=== PATIENT | female | born 1975 | race Caucasian/White ===

== ENCOUNTER → 2017-09-17 15:41 | Outpatient (CLI) | payer BC, SELFPAY ==
[2017-09-17 18:29] LABS: AST(SGOT) 15 U/L (15-37); Alanine Aminotransfer ALT/SGPT 26 U/L (13-56); Albumin, Serum 3.8 g/dL (3.2-5.0); Alkaline Phosphatase 56 U/L (45-117); Anion Gap 8 (5-15); BUN 14 mg/dL (7-18); Calcium,Total 8.9 mg/dL (8.5-10.1); Chloride 107 mmol/L (98-107); Creatinine, Serum 0.78 mg/dL (0.55-1.02); EST Glomerular Filtration Rate 86 mL/min (>60); Est Glom Filt Rate - Afr Amer 104 mL/min (>60); Glucose 86 mg/dL (74-106); Potassium 4.1 mmol/L (3.5-5.1); Protein, Total 7.8 g/dL (6.4-8.2); Sodium Level 141 mmol/L (136-145); Total Bilirubin < 0.10 mg/dL (0.20-1.00)
== END ==
PROVIDERS: Family Provider Family Medicine; PCP Family Medicine; Visit Provider Podiatrist
DX: S92.502A Displaced unspecified fracture of left lesser toe(s), initial encounter for closed fracture (principal); X58.XXXA Exposure to other specified factors, initial encounter; Y93.9 Activity, unspecified; Y92.9 Unspecified place or not applicable; Y99.9 Unspecified external cause status; E55.9 Vitamin D deficiency, unspecified
CPT/HCPCS: 36415; 80053; 82306

== ENCOUNTER → 2018-04-06 13:37 | Outpatient (CLI) | payer BC, SELFPAY ==
--- NOTE | 2018-04-06 13:39 | CT_ITS ---
STUDY: CT CHEST WITHOUT CONTRAST REASON FOR EXAM: Female, 42 years old. Follow-up bilateral lung nodules. RADIATION DOSAGE (If Supplied By Facility): CTDIvol = ( 8.78 ) mGy, DLP = ( 306.73 ) mGycm TECHNIQUE: Transaxial imaging was performed without the administration of intravenous contrast material. Multiplanar coronal and sagittal images were reformatted. Individualized dose optimization techniques were used for this CT. COMPARISON: CT of the chest, April 06, 2017. FINDINGS: There is minimal bilateral apical pleural scarring unchanged from prior study. There is a 3 mm pleural-based nodule in the periphery of the right lower lobe unchanged from prior study. This is best seen on image 178 of series 4. No other mass or infiltrate is seen. There is no demonstrated pleural abnormality. Normal heart and pericardium. Normal mediastinum. Normal hilar regions. Normal unenhanced pulmonary arteries. Normal aorta arch and descending thoracic aorta. Minimal degenerative changes of the thoracic spine which appears stable. There is no change in the appearance of the upper abdomen. CT/Chest without Contrast IMPRESSION: 1. Stable right basilar nodule. There is no evidence of nodules at the left lung base. 2. No other interval change. Electronically Signed: Jesus Mcwilliams DO at 20:35 EST Tel [phone], Service support ,
== END ==
PROVIDERS: Family Provider Family Medicine; PCP Family Medicine; Referring Provider Internal Medicine Pulmonary Disease; Visit Provider Internal Medicine Pulmonary Disease
DX: R91.8 Other nonspecific abnormal finding of lung field (principal)
CPT/HCPCS: 71250

== ENCOUNTER 2018-05-27 10:30 | Outpatient (RCR) | payer BC, SELFPAY ==
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
--- NOTE | 2018-08-10 16:16 | HP.PT.NRP ---
HP - Discharge Summary (1) - Patient Information ALETHA SUAZO was seen in my office for initial evaluation on 05/13/18. The following Plan of Care was established for this patient: Initial Frequency: 2x /Week Initial Duration: 4 Weeks - Anticipated Interventions Patient/Client Instruction: Educate patient on: Condition, Plan of Care, Risk Factors, Benefits of Fitness Program For the Purpose of:: To improve decision making, To facilitate caregiver knowledge, To improve self management, To prevent re-injury, To improve ability to perform tasks related to life management, To improve tolerance to ADL's Therapeutic Exercise to Include: Strength training, Power training, Balance training, Coordination, Body mechanics, Postural training, Flexibilty training, Gait and locomotor training, Passive ROM, Active ROM For the Purpose of:: To decrease pain, To improve nutrient delivery to tissue, To increase oxygenation perfusion, To improve muscle performance and motor function, To improve ability to perform ADL's, To increase tolerance to activity/condition/position, To improve health of tissue, To decrease soft tissue restriction, To increase flexibility/ROM, To improve endurance, To improve balance IF ES: Yes Cryotherapy (ice pack, ice massage): Yes For the Purpose of:: To decrease pain This patient was last seen in our office 05/27/18. Pertinent comments regarding their Physical therapy will appear below: Pt. was seen for her ankle instability. Pt. was found to have a tear. She has not been back to PT and will be Dc from PT at this point in time. At this point I will be discontinuing this patient from physical therapy. I would be happy to see this patient again in the future if found appropriate by the physician. Thank you! BE AgrawalT
== END 2018-05-27 19:00 | disposition home or self-care (01) ==
LOC: PT 10:30
PROVIDERS: Family Provider Family Medicine; PCP Family Medicine; Referring Provider Podiatrist; Visit Provider Podiatrist
DX: M25.371 Other instability, right ankle (principal)
CPT/HCPCS: 97035; 97110; 97161

== ENCOUNTER → 2018-06-13 07:03 | Outpatient (CLI) | payer BC, SELFPAY ==
--- NOTE | 2018-06-13 07:21 | MRI_ITS ---
STUDY: MRI RIGHT ANKLE WITHOUT CONTRAST REASON FOR EXAM: Female, 43 years old. Pain. Evaluate peroneal tendon tear. TECHNIQUE: Standardized fat and water weighted pulse sequences were obtained in all 3 orthogonal planes. COMPARISON: None. FINDINGS: Normal subcutis adipose space. Normal posterior tibialis tendon. Normal flexor digitorum longus tendon. Normal flexor hallucis longus tendon. There is a partial longitudinal split tear of the peroneus brevis tendon within the retromalleolar groove with tenosynovitis, series 10 image 10/19. Normal tibialis anterior tendon. Normal extensor hallucis longus tendon. Normal extensor digitorum longus tendons. Normal Achilles tendon and teno-osseous insertion. Normal plantar fascia. Normal plantar calcaneal tubercles. Normal intrinsic muscles of the rearfoot. Normal distal tibiofibular syndesmotic ligamentous complex. Normal lateral ligamentous complex. Normal subtalar ligaments and sinus tarsi. Normal deltoid ligamentous complexes. Normal plantar calcaneonavicular (spring) ligament. Normal tibiotalar articulation. Normal talar dome. Normal subtalar articulations. Normal talonavicular articulation. Normal calcaneocuboid articulation. Normal navicular-cuneiform articulations. MRI/Lower Ext Joint Only (Routine) IMPRESSION: Tenosynovitis with longitudinal split tear of the peroneal brevis. Electronically Signed: Rush Berger MD at 10:37 EST , Service support ,
== END ==
LOC: MRI 07:04
PROVIDERS: Family Provider Family Medicine; PCP Family Medicine; Referring Provider Podiatrist; Visit Provider Podiatrist
DX: S86.312A Strain of muscle(s) and tendon(s) of peroneal muscle group at lower leg level, left leg, initial encounter (principal); M25.371 Other instability, right ankle; X58.XXXA Exposure to other specified factors, initial encounter; Y93.9 Activity, unspecified; Y92.9 Unspecified place or not applicable; Y99.9 Unspecified external cause status
CPT/HCPCS: 73721

== ENCOUNTER → 2018-07-23 17:15 | Outpatient (CLI) | payer BC, SELFPAY ==
--- NOTE | 2018-07-23 18:03 | MRI_ITS ---
HISTORY: ROTATOR CUFF TEAR, h/o frozen shoulder, c/o R sided neck pain TECHNIQUE: Multiplanar and multisequence MR images of the right shoulder. IV Contrast dosage and agent: None. COMPARISON: None FINDINGS: Normal AC joint. No cuff impingement. Rotator cuff: The rotator cuff is intact. No cuff tendinosis or atrophy. No fluid collections within the subacromial/subdeltoid bursa. No joint effusion. The axillary recess appears small and associated thickening of the inferior glenohumeral ligament is suggested as seen with addhesive capsulitis. Articular cartilage is preserved. Intact glenoid labrum. The long head of the bicipital tendon is in normal position. No fracture, marrow edema, or avascular necrosis. No evidence of instability. MRI/Upper Ext Joint Only(Routine) IMPRESSION: 1. Small axillary recess with thickening of the inferior glenohumeral ligament is suggested as seen with adhesive capsulitis. 2. Shoulder arthrogram could confirm a small capacity joint. 3. Otherwise negative exam. Intact rotator cuff. No impingement or bursitis. at 0833 Reported and signed by: Robinson Fairchild MD Electronically Signed: Robinson Fairchild, at 8:32 EST Tel , Service support ,
== END ==
PROVIDERS: Family Provider Family Medicine; PCP Family Medicine; Referring Provider Orthopaedic Surgery; Visit Provider Orthopaedic Surgery
DX: M75.101 Unspecified rotator cuff tear or rupture of right shoulder, not specified as traumatic (principal)
CPT/HCPCS: 73221

== ENCOUNTER 2018-08-18 16:00 | Outpatient (RCR) | payer BC, SELFPAY ==
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
--- NOTE | 2018-12-17 11:50 | HP.PTDCNRP_ITS ---
HP - Discharge Summary (1) - Patient Information ALETHA SUAZO was seen in my office for initial evaluation on 08/05/18. The following Plan of Care was established for this patient: Initial Frequency: 1-2x /Week Initial Duration: 1 Week - Anticipated Interventions Patient/Client Instruction: Educate patient on: Condition, Plan of Care For the Purpose of:: To improve self management Therapeutic Exercise to Include: Strength training, Endurance training, Scapular Strength/Stabilization For the Purpose of:: To decrease pain, To increase ROM, To improve muscle per formance and motor function Cryotherapy (ice pack, ice massage): Yes For the Purpose of:: To decrease pain This patient was last seen in our office . Pertinent comments regarding their Physical therapy will appear below: Pt was treated for 3 PT visits through the date of 08/18/18. Pt has not returned since that date, and is discontinued at this time. At this point I will be discontinuing this patient from physical therapy. I would be happy to see this patient again in the future if found appropriate by the physician. Thank you! John Chapman, PT, ATC
== END 2018-08-18 19:00 | disposition home or self-care (01) ==
LOC: PT 16:00
PROVIDERS: Family Provider Family Medicine; PCP Family Medicine; Referring Provider Orthopaedic Surgery; Visit Provider Orthopaedic Surgery
DX: M75.01 Adhesive capsulitis of right shoulder (principal); M75.41 Impingement syndrome of right shoulder
CPT/HCPCS: 97110; 97140; 97161

== ENCOUNTER 2019-08-19 13:00 | Outpatient (RCR) | payer BC, SELFPAY ==
--- NOTE | 2019-06-29 11:01 | HP.PTEVAL_ITS ---
Patient's Visit Information ALETHA SUAZO is a 44 year old F referred to Physical Therapy by Alma Carey MD with a diagnosis of Right Peroneal Tendon Repair 05/14. Date of Evaluation: 06/29/19 Physical Therapist: Alma Jason DPT - Visit Plan Frequency: 2x /Week Duration: 4 Weeks Plan: Focus on LE strength, flex, propriocetion and muscular endurance- gait pattern and functional mobility- caution of edema - Subjective Findings: Right Peroneal Tendon Repair May 14, 2019 went home after surgery. Was in a cast for 2 weeks and then into a boot. Got out of the boot and into an ankle brace last . Feels a lot better in the ankle brace. Pain at the worst 4/10 Agg: movement, being down, stairs. Eases: rest, ice, elevation Best: 0/10. Pain is located under the lateral malleolus and runs to the mid calf . Describes the pain as burning and stabbing. No N/T in the right LE. 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 Is active normally- work out and walks a lot. Wants to get back to maybe light jogging. Is wear a compression sleeve and ankle brace when she is awake. Sleep: slightly distrubed but getting better. PMHx: none Meds: delmis D for allergies. Last time back to MD was she was happy with progress- no x-rays since surgery. - Objective Posture: FH, RS- can correct but does not maintain. Gait: antalgic- decreased heel toe pattern with decreased stance on the right LE. Stairs: non recip with no HR. HR/TR: able with increased discomfort. SLS: 2 sec then LOB. Girth: Figure 8:47 cm, Mets: 20 cm, Mall: 24 cm. ROM: DF: 5 degrees. PF: 50 degrees, Inv: 30 degrees, Ever: 10 degrees. Strength: 4+/5 throughout ankle and knee. Flex: Gastroc: severe, Soleus: moderate HS: severe. Palpation: tender along lateral malleolus. Incision: healing well - Goals Goal 1:: Patient will be I with HEP and progression Goal Time Frame: 4-6 Weeks Goal 2:: Patient will ambulate >300 feet with a normalized gait pattern Goal Time Frame: 4-6 Weeks Goal 3:: Patinet will SLS for 30 sec without LOB Goal Time Frame: 4-6 Weeks Goal 4:: Patient will asc/desc 8 recip with 1 HR Goal Time Frame: 4-6 Weeks - Rehabilitation Potential Physical Therapy Diagnosis: Patient presents with hypomobility- she has decreased strength, flex, muscular endurance leading to poor posture and increased pain with ADL's and recreational activities Rehabilitation Potential: Good - Anticipated Interventions Patient/Client Instruction: Educate patient on: Benefits of Fitness Program Therapeutic Exercise to Include: Strength training, Endurance training, Balance training, Body mechanics, Postural training, Flexibilty training, Gait and locomotor training, Neuromotor development, Passive ROM, Active ROM, Dynamic Lumbar Stabilization TENS: Yes Cryotherapy (ice pack, ice massage): Yes Thermo therapy (hot pack): Yes For the Purpose of:: To decrease pain, To decrease swelling/inflammation Thank you for the opportunity to evaluate your patient. For Medicare and Medicare HMO plans, please review the plan of care and approve it. It will need to be FAXED BACK to us at [phone] for Medicare purposes. For Medicare only, by signing this I certify the plan of care. Please let me know if there are questions or concerns regarding this plan of care. Physician Sig nature: Date:
--- NOTE | 2019-07-27 13:21 | HP.PTREVAL_ITS ---
Alma Carey MD, It has been my pleasure to treat ALETHA SUAZO over the last 8 visits for Right Peroneal Tendon Repair 05/14. Please see the progress note below for an update on the physical therapy plan of care! Subjective: Patient reports that she is getting better and better- she is doing the band daily. It tightens up randomonly. She is getting to the point where she can walk without thinking about it. Does still have sharp pains which MD says that is normal. Saw who was happy. She wants to be able to walk longer distances and wants to run run/jog. Objective/Function: Posture: FH, RS- can correct but does not maintain. Gait: improved- still slightly antalgic with decreased toe off pattern Stairs: recip with 1 HR. HR/TR: able with tightness. SLS: 12 sec then LOB. ROM: DF: 10 degrees. PF: 60 degrees, Inv: 30 degrees, Ever: 10 degrees. Strength: 4+/5 throughout ankle and knee Hip: 4/5 Core: fair. Flex: Gastroc: moderate, Soleus: moderate HS: severe. Palpation: tender along lateral malleolus. Incision: healing well Plan Plan: Continue 2x a week for 4 weeks- progress with LE and core strength/stabilization- 60 min sessions Goals Goal 1:: Patient will be I with HEP and progression Goal Time Frame: 4-6 Weeks Goal Progress: Progressing Goal 2:: Patient will ambulate >300 feet with a normalized gait pattern Goal Time Frame: 4-6 Weeks Goal Progress: Progressing Goal 3:: Patinet will SLS for 30 sec without LOB Goal Time Frame: 4-6 Weeks Goal Progress: Progressing Goal 4:: Patient will asc/desc 8 recip with 1 HR Goal Time Frame: 4-6 Weeks Goal Progress: Progressing Anticipated Interventions Patient/Client Instruction: Educate patient on: Benefits of Fitness Program Therapeutic Exercise to Include: Strength training, Endurance training, Balance training, Body mechanics, Postural training, Flexibilty training, Gait and locomotor training, Neuromotor development, Passive ROM, Active ROM, Dynamic Lumbar Stabilization TENS: Yes Cryotherapy (ice pack, ice massage): Yes Thermo therapy (hot pack): Yes For the Purpose of:: To decrease pain, To decrease swelling/inflammation Please do not hesitate to contact me at [phone] by phone or Fax: if you have questions or concerns regarding this new plan of care! Sincerely, BE OnealT
--- NOTE | 2019-08-19 13:18 | HP.PTDCSUM_ITS ---
It has been my pleasure to treat ALETHA SUAZO referred by Alma Carey MD, with the diagnosis of Right Peroneal Tendon Repair 05/14 for a total of 15 visit(s). Discharge Date: Please see the following information for a summary of their discharge status. Subjective: Patient reports that she is doing well- she reports that she still has a little bit of pain- Worst: 3-4/10- aggravated by stairs- had to back off a little bit of weights due to a harder step down. Feels that she is 70% back to normal. Wants to be able to walk longer distances. Back Pain Intensity (Out of 10): 2 % Improvement: 70 Objective/Function: Posture: FH, RS- can correct but does not maintain. Gait: no deviation noted Stairs: recip with 1 HR. HR/TR: able no UE A. SLS: 30 sec no LOB. ROM: DF: 15 degrees. PF: 60 degrees, Inv: 30 degrees, Ever: 10 degrees. Strength: 5/5 throughout ankle and knee Hip: 4+/5 Core: fair. Flex: Gastroc: moderate, Soleus: moderate HS: severe. Palpation: not tender Incision: healing well Goal 1:: Patient will be I with HEP and progression Goal Progress: Goal Met Goal 2:: Patient will ambulate >300 feet with a normalized gait pattern Goal Progress: Goal Met Goal 3:: Ammynet will SLS for 30 sec without LOB Goal Progress: Goal Met Goal 4:: Patient will asc/desc 8 recip with 1 HR Goal Progress: Goal Met Plan: Discharge to [facility] If there are questions or concerns regarding this patient's physical therapy, please feel free to call me at [phone]. Thank you for the referral of this patient. Sincerely, Alma Jason DPT
== END 2019-08-19 19:00 | disposition home or self-care (01) ==
LOC: PT 13:00
PROVIDERS: PCP Family Medicine; Referring Provider Orthopaedic Surgery; Visit Provider Orthopaedic Surgery
DX: S86.301D Unspecified injury of muscle(s) and tendon(s) of peroneal muscle group at lower leg level, right leg, subsequent encounter (principal)
CPT/HCPCS: 97110; 97161; 97164

== ENCOUNTER → 2020-04-03 10:58 | Outpatient (CLI) | payer BC, SELFPAY ==
--- NOTE | 2020-04-03 11:09 | MRI_ITS ---
STUDY: MRI LUMBAR SPINE WITHOUT CONTRAST REASON FOR EXAM: Female, 44 years old. disc herniation with radiculopathy,lbp, rt hip pain TECHNIQUE: Standardized fat and water weighted pulse sequences were obtained in the sagittal and axial planes. COMPARISON: None FINDINGS: T12-L1: Normal endplates. Normal disc height, hydration and morphology. Normal bilateral facet joints. Normal central canal and bilateral lateral recesses. Normal bilateral intervertebral neural foramina. Normal lumbar lordosis. There is no substantial scoliosis. Normal conus medullaris that terminates at the L1. L1-2: Normal endplates. Normal disc height, hydration and morphology. Normal bilateral facet joints. Normal central canal and bilateral lateral recesses. Normal bilateral intervertebral neural foramina. L2-3: Mild bilobed disc protrusion produces a no spinal stenosis and mild bilateral neural foraminal stenosis. L3-4: Normal endplates. Normal disc height, hydration and morphology. Normal bilateral facet joints. Normal central canal and bilateral lateral recesses. Normal bilateral intervertebral neural foramina. L4-5: Some disc desiccation but no disc protrusion, spinal stenosis, or neural foraminal stenosis. L5-S1: Normal endplates. Normal disc height, hydration and morphology. Normal bilateral facet joints. Normal central canal and bilateral lateral recesses. Normal bilateral intervertebral neural foramina. Normal visualized sacral ala. Mild friction related edema in the posterior subcutaneous fat. MRI/Spine Lumbar (Routine) IMPRESSION: Mild degenerative disc disease as described above. Electronically Signed: Brenden Aguilar MD at 15:40 EST Tel , Service support ,
== END ==
PROVIDERS: PCP Family Medicine; Referring Provider Orthopaedic Surgery; Visit Provider Orthopaedic Surgery
DX: M51.16 Intervertebral disc disorders with radiculopathy, lumbar region (principal)
CPT/HCPCS: 72148

== ENCOUNTER → 2020-07-06 | Outpatient (CLI) | payer BC, SELFPAY ==
[2020-07-06 14:20] VITALS: BMI 37.0
[2020-07-11 08:41] LABS: HPV APTIMA, High Risk Negative (Negative)
== END | disposition home or self-care (01) ==
LOC: LABSPEC 16:41
PROVIDERS: PCP Family Medicine; Referring Provider Nurse Practitioner Women's Health; Visit Provider Nurse Practitioner Women's Health
DX: Z12.4 Encounter for screening for malignant neoplasm of cervix (principal)
CPT/HCPCS: 87624; 88175; G0145

== ENCOUNTER → 2020-07-13 | Outpatient (CLI) | payer BC, SELFPAY ==
[2020-07-13 15:11] VITALS: BMI 37.3
--- NOTE | 2020-07-13 15:30 | EMB_PTH ---
PATIENT: ALETHA SUAZO LOC: [facility] U#:[id number] AGE/SX: 45/F ROOM: RE07/13/[address]: WENCESLAO Leal : 1975 BED: DIS: 07/13/2020 SPEC #: [id number] RECD: 07/13/20 16:15 STATUS: SAVAGE REYumiko #: [id number] GIANCARLO: 07/13/20 15:[address]: Jayna Dhillon NP DEPT: SURGICAL PATHOLOGY RECD BY: Kisha Cisneros ENTERED: 07/14/20 11:54 SP TYPE: ENDOM BX/C ARUNA DR: Dr. Dang Shanks MD Tissues: Endometrium, NOS Procedures: Surgery Specimen Level IV HEADER OPERATION: Endometrial biopsy PRE-OP DIAGNOSIS: Abnormal uterine bleeding TISSUE SUBMITTED: Endometrial biopsy MICROSCOPIC DIAGNOSIS Endometrium, biopsy: Transition endometrium with focal stromal and glandular breakdown. Rare strips of benign superficial endocervix. AM:michael 07/17/2020 MICROSCOPIC DESCRIPTION Slides are reviewed. GROSS DESCRIPTION Received is one container labeled with the patient's name and not further designated. The specimen consists of multiple fragments of dejesus hemorrhagic soft tissue that in aggregate measure 2.5 x 2.5 x 0.1 cm. The specimen is totally submitted in one cassette. / LEAH:michael 07/14/20 TC:5 CPT: 08912
== END | disposition home or self-care (01) ==
LOC: LABSPEC 16:38
PROVIDERS: PCP Family Medicine; Referring Provider Nurse Practitioner Women's Health; Visit Provider Nurse Practitioner Women's Health
DX: N93.9 Abnormal uterine and vaginal bleeding, unspecified (principal)
CPT/HCPCS: 88305

== ENCOUNTER → 2020-07-14 13:17 | Outpatient (CLI) | payer BC, SELFPAY ==
[2020-07-06 14:20] VITALS: BMI 37.0
[2020-07-13 15:11] VITALS: BMI 37.3
--- NOTE | 2020-07-14 13:30 | BI_ITS ---
MAMMOGRAPHY - BILATERAL SCREENING REASON FOR EXAM: Female, 45 years old. Routine annual screening examination. PERTINENT HISTORY: Aunt with breast cancer. TECHNIQUE: Digital bilateral breast daphne (3D mammographic acquisition) in the CC and MLO projections. 2-D mediolateral oblique (MLO) and craniocaudad (CC) views of both breasts were obtained. CAD: Full Field Digital Mammography with Computer Added Detection was performed. COMPARISON: Comparison is made with prior examination dated 11/05/2016. FINDINGS: Breast Composition: The breasts are heterogeneously dense, which may obscure small masses. There are no dominant masses or suspicious calcifications. Stable small benign appearing bilateral axillary lymph nodes. No other significant abnormalities are identified. There has been no significant change since the prior study. BI/SCRN MAMM (CAD)W/DAPHNE BILAT IMPRESSION: Stable bilateral screening mammogram. Yearly follow-up mammogram recommended. (A) ASSESSMENT CATEGORY: BIRADS Category 2: Benign. A letter regarding these results will be sent to the patient by the facility within 30 days. Approximately 10% of breast cancers are not detected by mammography. A normal mammogram should not delay biopsy of a clinically suspicious abnormality. [id number] Electronically Signed: Merrick Beckham MD at 15:16 EST , Service support ,
--- NOTE | 2020-07-14 13:44 | US_ITS ---
STUDY: ULTRASOUND OF THE FEMALE PELVIS - COMPLETE REASON FOR EXAM: Female, 45 years old. IRREGULAR MENSES THEY ARE HAPPENING OFTEN LMP: 06/30/2020. TECHNIQUE: Transabdominal and Transvaginal TECHNICAL QUALITY: Adequate. COMPARISON: None. FINDINGS: The uterus is anteverted and is in a midline position. The uterus measures 6.9 cm x 4.5 cm x 3.2 cm. There is a Nabothian cyst of the cervix. The endometrium measures 3.8 mm in thickness, and is hyperechoic. There is no demonstrated endometrial mass. The myometrium is of heterogeneous echotexture although no focal fibroid is seen. I.U.D. - The patient does not have an I.U.D. The right ovary is visualized. The right ovary measures 2.2 cm x 2.2 cm x 1.0 cm. There is no right ovarian cyst or ovarian mass. There is no visualized right adnexal mass or complex lesion. There is normal arterial and normal venous vascularity. The left ovary is visualized. The left ovary measures 5.1 cm x 3.6 cm x 2.3 cm. There is a 3.9 cm x 3.3 cm x 2.3 cm cyst in the left ovary. There is no visualized left adnexal mass or complex lesion. There is normal arterial and normal venous vascularity. There is minimal fluid in the cul-de-sac. The pre void volume of the bladder was 807 ml. Polycystic ovary disease: No. US/Pelvic (Non ) IMPRESSION: Heterogeneous echotexture of the myometrium although no focal fibroid is seen. 3.9 cm x 3.3 cm x 2.3 cm left ovarian cyst. Electronically Signed: Merrick Beckham MD at 15:19 EST , Service support ,
--- NOTE | 2020-07-14 13:44 | US_ITS ---
STUDY: ULTRASOUND OF THE FEMALE PELVIS - COMPLETE REASON FOR EXAM: Female, 45 years old. IRREGULAR MENSES THEY ARE HAPPENING OFTEN LMP: 06/30/2020. TECHNIQUE: Transabdominal and Transvaginal TECHNICAL QUALITY: Adequate. COMPARISON: None. FINDINGS: The uterus is anteverted and is in a midline position. The uterus measures 6.9 cm x 4.5 cm x 3.2 cm. There is a Nabothian cyst of the cervix. The endometrium measures 3.8 mm in thickness, and is hyperechoic. There is no demonstrated endometrial mass. The myometrium is of heterogeneous echotexture although no focal fibroid is seen. I.U.D. - The patient does not have an I.U.D. The right ovary is visualized. The right ovary measures 2.2 cm x 2.2 cm x 1.0 cm. There is no right ovarian cyst or ovarian mass. There is no visualized right adnexal mass or complex lesion. There is normal arterial and normal venous vascularity. The left ovary is visualized. The left ovary measures 5.1 cm x 3.6 cm x 2.3 cm. There is a 3.9 cm x 3.3 cm x 2.3 cm cyst in the left ovary. There is no visualized left adnexal mass or complex lesion. There is normal arterial and normal venous vascularity. There is minimal fluid in the cul-de-sac. The pre void volume of the bladder was 807 ml. Polycystic ovary disease: No. US/Transvaginal Non- IMPRESSION: Heterogeneous echotexture of the myometrium although no focal fibroid is seen. 3.9 cm x 3.3 cm x 2.3 cm left ovarian cyst. Electronically Signed: Merrick Beckham MD at 15:19 EST , Service support ,
== END ==
PROVIDERS: PCP Family Medicine; Referring Provider Nurse Practitioner Women's Health; Visit Provider Nurse Practitioner Women's Health
DX: Z12.31 Encounter for screening mammogram for malignant neoplasm of breast (principal); N92.6 Irregular menstruation, unspecified
CPT/HCPCS: 76830; 76856; 77063; 77067

== ENCOUNTER → 2020-08-30 14:24 | Outpatient (CLI) | payer BC, SELFPAY ==
[2020-07-13 15:11] VITALS: BMI 37.3
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
[2020-08-30 15:35] LABS: Absolute Lymphocyte Count 2.92 X10^3/uL (0.83-4.51); Basophil# 0.07 X10^3/uL; Basophil% 0.8 % (0-1); Eosinophils% 1.1 % (0-5); Hematocrit 41.1 % (37-47); Hemoglobin 12.5 g/dL (12.0-15.0); Lymphocyte # 2.92 X10^3/ul (4.0); Lymphocyte % 32.8 % (19-41); Mean Corp Hgb Conc 30.4 g/dL (32-36); Mean Corpuscular Hgb 25.7 pg (27.0-32.0); Mean Corpuscular Volume 84.4 fL (81-99); Mean Platelet Vol. 9.7 fl (6.2-12.0); Monocyte# 0.75 X10^3/uL; Monocyte% 8.4 % (0-10); NRBC Flagged by Analyzer 0 % (0-5); Neutrophil # 5.04 X10^3/uL (2.7-7.7); Neutrophil % 56.7 % (47-70); Platelet Count 503 K/mm3 (150-450); RBC Distribution Width CV 14.5 % (11.6-14.6); RBC Distribution Width SD 44.8 fl (35.1-43.9); Red Blood Count 4.87 M/mm3 (4.2-5.4); White Blood Count 8.9 K/mm3 (4.4-11.0)
[2020-08-30 16:02] LABS: CRP 2.97 mg/L (0.0-3.0)
[2020-08-30 16:06] LABS: Vitamin D,25 Hydroxy 54.2 ng/mL
[2020-08-30 16:10] LABS: Erythrocyte Sedimentation Rate 17 mm/hr (0-30)
[2020-09-01 16:08] LABS: PROEL- A/G Ratio 0.9 (0.7-1.7); PROEL- Albumin 3.4 g/dL (2.9-4.4); PROEL- Alpha-1 Globulin 0.3 g/dL (0.0-0.4); PROEL- Alpha-2 Globulin 0.9 g/dL (0.4-1.0); PROEL- Beta Globulin 1.3 g/dL (0.7-1.3); PROEL- Gamma Globulin 1.1 g/dL (0.4-1.8); PROEL- Globulin, Total 3.6 g/dL (2.2-3.9)
== END ==
PROVIDERS: PCP Family Medicine; Referring Provider Orthopaedic Surgery; Visit Provider Orthopaedic Surgery
DX: M70.61 Trochanteric bursitis, right hip (principal)
CPT/HCPCS: 36415; 72192; 82306; 84165; 85025; 85652; 86140

== ENCOUNTER → 2020-09-29 13:57 | Outpatient (CLI) | payer BC, SELFPAY ==
[2020-07-13 15:11] VITALS: BMI 37.3
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
--- NOTE | 2020-09-29 13:58 | US_ITS ---
STUDY: ULTRASOUND OF THE FEMALE PELVIS - COMPLETE REASON FOR EXAM: Female, 45 years old. Flank pain LMP: 09/16/2019 TECHNIQUE: Transabdominal and Transvaginal TECHNICAL QUALITY: Adequate. COMPARISON: None. FINDINGS: The uterus is anteverted and is in a midline position. The uterus measures 7.6 x 5.4 x 2.9 cm. Normal uterine cervix. The endometrium measures 9 mm in thickness, and is hyperechoic. There is no demonstrated endometrial mass. There is a 1.0 cm fibroid I.U.D. - The patient does not have an I.U.D. The right ovary is visualized. The right ovary measures 2.2 x 2.3 x 1.1 cm. There is no right ovarian cyst or ovarian mass. There is no visualized right adnexal mass or complex lesion. There is normal arterial and normal venous vascularity. The left ovary is visualized. The left ovary measures 3.7 x 3.7 x 1.9 cm. There 2 simple cysts, larger measures 1.4 cm There is normal arterial and normal venous vascularity. There is minimal fluid around the left ovary The bladder is sonographically normal with estimated capacity of 533.8 mL US/Pelvic (Non ) IMPRESSION: Small uterine fibroid Simple left adnexal cysts, no specific follow-up Minimal free fluid in cul-de-sac and around the left ovary likely physiologic Electronically Signed: Lalo Quintero MD at 17:17 EDT , Service support ,
== END ==
PROVIDERS: PCP Family Medicine; Referring Provider Nurse Practitioner Women's Health; Visit Provider Nurse Practitioner Women's Health
DX: N83.209 Unspecified ovarian cyst, unspecified side (principal); R14.0 Abdominal distension (gaseous)
CPT/HCPCS: 76830; 76856

== ENCOUNTER 2020-10-05 16:30 | Outpatient (RCR) | payer BC, SELFPAY ==
[2020-07-13 15:11] VITALS: BMI 37.3
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
--- NOTE | 2021-03-06 08:00 | HP.PT.NRP ---
ALETHA SUAZO was seen in my office for initial evaluation on 09/15/20. The following Plan of Care was established for this patient: Initial Frequency: 2x /Week Initial Duration: 4 Weeks Patient/Client Instruction: Educate patient on: Condition, Plan of Care For the Purpose of:: To decrease pain, To improve nutrient delivery to tissue, To increase tolerance to activity/condition/position, To improve ability of physical actions for home/community/work/leisure, To improve health of tissue, To decrease soft tissue restriction, To increase flexibility/ROM, To improve health and function Therapeutic Exercise to Include: Strength training, Postural training, Gait and locomotor training, Active ROM, Suhail Exercises, Scapular Strength/Stabilization For the Purpose of:: To decrease pain, To increase ROM, To improve muscle performance and motor function, To increase tolerance to activity/condition/position, To improve ability of physical actions for home/community/work/leisure, To improve health of tissue, To decrease soft tissue restriction, To increase flexibility/ROM, To improve ability to perform tasks related to life management Manual Therapy Techniques to Include: Mobilization, Soft tissue mobilization Comment: CERVICAL For the Purpose of:: To decrease pain, To increase ROM, To improve nutrient delivery to tissue, To increase oxygenation perfusion, To improve health of tissue, To decrease soft tissue restriction TENS: Yes IF ES: Yes Cryotherapy (ice pack, ice massage): Yes Thermo therapy (hot pack): Yes Ultrasound (thermal/non thermal): Yes Intermittent cervical traction: Yes - - # For the Purpose of:: To decrease pain, To increase ROM, To improve health of tissue, To decrease soft tissue restriction, To increase flexibility/ROM This patient was last seen in our office . Pertinent comments regarding their Physical therapy will appear below: Patient was seen for PT for cervical pain with STM ,postural ex's and ICTX ,thus is d/c At this point I will be discontinuing this patient from physical therapy. I would be happy to see this patient again in the future if found appropriate by the physician. Thank you! Stanley Trimble, PT, Cert MDT, OCS Balance/Gait/Functional tests - Balance/Special Test Scores Oswestry Neck Score: 1
== END 2020-10-05 19:00 | disposition home or self-care (01) ==
LOC: PT 16:30
PROVIDERS: PCP Family Medicine; Referring Provider Nurse Practitioner; Visit Provider Nurse Practitioner
DX: M54.2 Cervicalgia (principal)
CPT/HCPCS: 97012; 97035; 97140; 97162

== ENCOUNTER → 2020-12-01 08:10 | Outpatient (CLI) | payer BC, SELFPAY ==
[2020-10-16 14:11] VITALS: BMI 36.9
[2020-12-01 10:10] LABS: Hematocrit 41.2 % (37-47); Hemoglobin 12.4 g/dL (12.0-15.0); Mean Corp Hgb Conc 30.1 g/dL (32-36); Mean Corpuscular Hgb 24.6 pg (27.0-32.0); Mean Corpuscular Volume 81.6 fL (81-99); Mean Platelet Vol. 9.6 fl (6.2-12.0); Platelet Count 532 K/mm3 (150-450); RBC Distribution Width CV 16.8 % (11.6-14.6); Red Blood Count 5.05 M/mm3 (4.2-5.4); White Blood Count 5.7 K/mm3 (4.4-11.0)
[2020-12-01 10:34] LABS: ALB/GLOB Ratio 0.8 RATIO (0.9-2.4); AST(SGOT) 12 U/L (15-37); Alanine Aminotransfer ALT/SGPT 31 U/L (13-56); Albumin, Serum 3.3 g/dL (3.2-5.0); Alkaline Phosphatase 68 U/L (45-117); Anion Gap 8 (5-15); BUN 8 mg/dL (7-18); Calcium,Total 8.3 mg/dL (8.5-10.1); Chloride 105 mmol/L (98-107); Creatinine, Serum 0.89 mg/dL (0.55-1.02); EST Glomerular Filtration Rate 72 mL/min (>60); Est Glom Filt Rate - Afr Amer 88 mL/min (>60); Globulin 3.9 g/dL (2.2-4.2); Glucose 84 mg/dL (74-106); Potassium 4.1 mmol/L (3.5-5.1); Protein, Total 7.2 g/dL (6.4-8.2); Sodium Level 139 mmol/L (136-145)
== END ==
PROVIDERS: PCP Family Medicine; Referring Provider Nurse Practitioner Family; Visit Provider Nurse Practitioner Family
DX: R19.7 Diarrhea, unspecified (principal)
CPT/HCPCS: 36415; 80053; 85027; 87177; 87209; 87493; 87506

== ENCOUNTER → 2020-12-06 12:32 | Outpatient (CLI) | payer BC, SELFPAY ==
[2020-10-16 14:11] VITALS: BMI 36.9
== END ==
PROVIDERS: PCP Family Medicine; Referring Provider Family Medicine; Visit Provider Family Medicine
DX: Z00.00 Encounter for general adult medical examination without abnormal findings (principal)

== ENCOUNTER → 2020-12-08 11:06 | Outpatient (CLI) | payer BC, SELFPAY ==
[2020-10-16 14:11] VITALS: BMI 36.9
--- NOTE | 2020-12-08 11:09 | RAD_ITS ---
STUDY: X-RAY - RIGHT SHOULDER REASON FOR EXAM: Female, 45 years old. SHOULDER PAIN TECHNIQUE: 4 view(s) of the shoulder. COMPARISON: None. FINDINGS: Normal glenohumeral articulation. Normal acromioclavicular joint. Normal acromion. Normal humeral head and visualized proximal humerus. The soft tissue structures are unremarkable. Normal visualized pulmonary apex. RAD/Shoulder min 2 Views IMPRESSION: Normal x-ray examination of the shoulder. Electronically Signed: Merrick Beckham MD at 14:53 EDT , Service support ,
--- NOTE | 2020-12-08 11:09 | RAD_ITS ---
STUDY: X-RAY - CERVICAL SPINE REASON FOR EXAM: Female, 45 years old. CERVICALGIA TECHNIQUE: 6 view(s) of the cervical spine were obtained including oblique views and flexion and extension views.. COMPARISON: None FINDINGS: Normal anterior atlantoaxial articulation. Normal odontoid process. There is straightening of the normal cervical lordosis. Moderate degree of disc space narrowing and minimal anterior spondylosis at the C5-C6 and C6-C7 levels. Normal disc space heights. Normal visualized intervertebral neuroforamina. The soft tissue structures are unremarkable. RAD/Cerv Spine Obl/Flex/Ext Comp IMPRESSION: Disc space narrowing and minimal spondylosis at the C5-C6 and C6-C7 levels. Electronically Signed: Merrick Beckham MD at 14:55 EDT , Service support ,
== END ==
PROVIDERS: PCP Family Medicine; Referring Provider Anesthesiology; Visit Provider Anesthesiology
DX: M25.511 Pain in right shoulder (principal); M54.2 Cervicalgia
CPT/HCPCS: 72052; 73030

== ENCOUNTER → 2020-12-13 10:41 | Outpatient (CLI) | payer BC, SELFPAY ==
[2020-10-16 14:11] VITALS: BMI 36.9
[2020-12-14 16:12] LABS: Endomysial Antibody IgA Negative (Negative)
[2020-12-14 16:59] LABS: Immunoglobulin A 244 mg/dL (87-352); t-Transglutaminase IgA <2 U/mL (0-3)
== END ==
PROVIDERS: PCP Family Medicine; Referring Provider Internal Medicine Gastroenterology; Visit Provider Internal Medicine Gastroenterology
DX: R19.7 Diarrhea, unspecified (principal)
CPT/HCPCS: 36415; 82784; 83516; 86140; 86255

== ENCOUNTER → 2021-01-16 16:14 | Outpatient (CLI) | payer BC, SELFPAY ==
[2020-10-16 14:11] VITALS: BMI 36.9
--- NOTE | 2021-01-16 16:45 | MRI_ITS ---
HISTORY: Radiculopathy EXAMINATION: MR Spine Cervical W/O Contrast TECHNIQUE: Multiplanar and multisequence MR images of the cervical spine were performed. IV Contrast dosage and agent: COMPARISON: None FINDINGS: VERTEBRAE: No acute fracture or pathologic marrow replacement. VERTEBRAL ALIGNMENT: Normal, including the craniocervical junction and cervicothoracic junction. No spondylolisthesis. There is mild reversal of the normal cervical lordosis. CORD: Unremarkable in signal and morphology. C2/C3: Normal disc height and morphology. Normal spinal canal and neuroforamina. C3/C4: Normal disc height and morphology. Mild left foraminal stenosis by osteophytes. C4/C5: Mild loss of normal disc space height without focal protrusion. Normal spinal canal and neuroforamina. C5/C6: Loss of normal disc space height without focal disc protrusion. Spondylotic changes produce mild right and moderately severe left foraminal stenosis. C6/C7: Loss of normal disc space height without focal disc protrusion. Disc-osteophyte formation produces moderate right and severe left foraminal stenosis. C7/T1: Normal disc height and morphology. Normal spinal canal and neuroforamina. NECK SOFT TISSUES: No prevertebral soft tissue swelling. There is no cervical adenopathy. MRI/Spine Cervical (Routine) IMPRESSION: Cervical spondylosis with foraminal stenosis at C3-4, C5-C6 and C6-7 as above. Findings most severe on the left at C6-7. at 1626 Reported and signed by: Renny Barrett MD Electronically Signed: Renny Barrett MD at 16:25 EDT Tel , Service support ,
== END ==
PROVIDERS: PCP Family Medicine; Referring Provider Anesthesiology; Visit Provider Anesthesiology
DX: M54.12 Radiculopathy, cervical region (principal)
CPT/HCPCS: 72141

== ENCOUNTER → 2021-02-28 15:06 | Outpatient (CLI) | payer BC, SELFPAY ==
[2021-02-28 18:12] LABS: Hematocrit 38.1 % (37-47); Hemoglobin 11.6 g/dL (12.0-15.0); Mean Corp Hgb Conc 30.4 g/dL (32-36); Mean Corpuscular Hgb 24.6 pg (27.0-32.0); Mean Corpuscular Volume 80.9 fL (81-99); Mean Platelet Vol. 9.7 fl (6.2-12.0); Platelet Count 486 K/mm3 (150-450); RBC Distribution Width CV 15.9 % (11.6-14.6); RBC Distribution Width SD 46.6 fl (35.1-43.9); Red Blood Count 4.71 M/mm3 (4.2-5.4); White Blood Count 9.9 K/mm3 (4.4-11.0)
[2021-02-28 18:31] LABS: Erythrocyte Sedimentation Rate 17 mm/hr (0-30)
[2021-02-28 18:33] LABS: CRP < 2.90 mg/L (0.0-3.0)
== END ==
PROVIDERS: PCP Family Medicine; Referring Provider Internal Medicine Gastroenterology; Visit Provider Internal Medicine Gastroenterology
DX: K52.9 Noninfective gastroenteritis and colitis, unspecified (principal); M19.90 Unspecified osteoarthritis, unspecified site
CPT/HCPCS: 36415; 85027; 85652; 86140

== ENCOUNTER → 2021-05-29 | Outpatient (CLI) | payer BC, SELFPAY | END | disposition home or self-care (01) | LOC: LABSPEC 14:53 | PROVIDERS: PCP Family Medicine; Visit Provider Registered Nurse | DX: U07.1 COVID-19 (principal) | CPT/HCPCS: 87635; 87804; U0005; U0003 ==

== ENCOUNTER 2021-07-27 07:08 | Outpatient (CLI) | payer BC, SELFPAY ==
--- NOTE | 2021-07-27 07:29 | BI_ITS ---
MAMMOGRAPHY - BILATERAL SCREENING REASON FOR EXAM: Female, 46 years old. Routine annual screening examination. PERTINENT HISTORY: Aunt with breast cancer. TECHNIQUE: Digital bilateral breast daphne (3D mammographic acquisition) in the CC and MLO projections. 2-D mediolateral oblique (MLO) and craniocaudad (CC) views of both breasts were obtained. CAD: Full Field Digital Mammography with Computer Added Detection was performed. COMPARISON: Comparison is made with prior study dated 07/14/2020 and 11/05/2016. FINDINGS: Breast Composition: The breasts are heterogeneously dense, which may obscure small masses. There are no dominant masses or suspicious calcifications. Stable benign appearing bilateral axillary nodes. No other significant abnormalities are identified. There has been no significant change since the prior study. BI/SCRN MAMM (CAD)W/DAPHNE BILAT IMPRESSION: Stable bilateral screening mammogram. Yearly follow-up mammogram recommended. (A) ASSESSMENT CATEGORY: BIRADS Category 2: Benign. A letter regarding these results will be sent to the patient by the facility within 30 days. Approximately 10% of breast cancers are not detected by mammography. A normal mammogram should not delay biopsy of a clinically suspicious abnormality. [id number] Electronically Signed: Merrick Beckham MD at 8:13 EST ,
== END 2021-07-27 23:59 | disposition home or self-care (01) ==
LOC: OPBI 07:28
PROVIDERS: PCP Family Medicine; Referring Provider Nurse Practitioner Women's Health; Visit Provider Nurse Practitioner Women's Health
DX: Z12.31 Encounter for screening mammogram for malignant neoplasm of breast (principal)
CPT/HCPCS: 77063; 77067

== ENCOUNTER → 2021-11-23 | Outpatient (CLI) | payer BC, SELFPAY ==
--- NOTE | 2021-11-23 16:45 | MRI_ITS ---
STUDY: MRI LUMBAR SPINE WITH AND WITHOUT CONTRAST REASON FOR EXAM: Female, 46 years old. LUMBAR DDD TECHNIQUE: Standardized fat and water weighted pulse sequences were obtained in the sagittal and axial planes. 19 CC IV DOTAREM was administered for the contrast portion of the examination. COMPARISON: Previous MR of 04/03/2020. FINDINGS: Normal lumbar lordosis. Slight retrolisthesis of L2 on L3. No compression fracture. No osseous metastatic lesions. Conus is normally positioned. Nerve roots within the cauda equina do not appear abnormally thickened, clumped or enhancing. No enhancing epidural fluid collection is identified. T10/11: Minimal disc space narrowing and disc degeneration/dehydration. T11/12: Unremarkable. T12-L1: Unremarkable. L1-2: Unremarkable. L2-3: Disc degeneration/dehydration with minimal disc space narrowing. There is mild broad-based annular bulge at this level which mildly narrows the inferior neural foramina, unchanged. L3-4: Slight disc degeneration. Disc space is preserved. There is minimal broad-based extraforaminal disc protrusion on the left, slightly contacting the exiting L3 nerve root sleeve; this finding is noted. No mass effect upon the thecal sac or sac stenosis. L4-5: Minimal disc degeneration. Disc space is preserved. L5-S1: Unremarkable. Normal visualized sacral ala. Psoas muscles are symmetric. No paraspinal soft tissue swelling. Visualized abdominal aorta is normal in caliber. No endplate destruction to indicate osteomyelitis/discitis. Normal visualized paraspinous soft tissue structures. Extensive lumbar facet arthritis is present, greatest in the lower lumbar region. Minimal intra-facet fluid is noted on the left at L2/3 and L4/5. Enhanced scan shows mild enhancement of the soft tissues about the L4/5 facets. There is no enhancement of the fluid within the facet joints. MRI/Spine Lumbar W/WO Contrast IMPRESSION: Stable mild annular bulge at L2/3. Interval development of a minimal broad-based extraforaminal disc protrusion at L3/4, slightly contacting the exiting left L3 nerve root sleeve. Lower lumbar facet arthritis. Mild enhancement of the soft tissues about the L4/5 facet joints, which can be referred to as facet synovitis or noninfectious inflammatory osteoarthropathy. No findings of septic facet arthritis. No disc extrusion or thecal sac stenosis identified. Electronically Signed: Umair Ying MD at 3:03 EDT ,
== END | disposition home or self-care (01) ==
PROVIDERS: PCP Family Medicine; Visit Provider Orthopaedic Surgery
DX: M51.36 Other intervertebral disc degeneration, lumbar region (principal)
CPT/HCPCS: 72158; A9575

== ENCOUNTER → 2022-10-29 | Outpatient (CLI) | payer BC, SELFPAY ==
--- NOTE | 2022-10-29 16:46 | BI_ITS ---
MAMMOGRAPHY - BILATERAL SCREENING REASON FOR EXAM: Female, 47 years old. Routine annual screening examination. PERTINENT HISTORY: Aunt with breast cancer. TECHNIQUE: Digital bilateral breast daphne (3D mammographic acquisition) in the CC and MLO projections. 2-D mediolateral oblique (MLO) and craniocaudad (CC) views of both breasts were obtained. CAD: Full Field Digital Mammography with Computer Added Detection was performed. COMPARISON: Comparison is made with prior study dated July 27, 2021 July 14, 2020. FINDINGS: Breast Composition: The breasts are heterogeneously dense, which may obscure small masses. There are no dominant masses or suspicious calcifications. Stable small benign-appearing bilateral axillary lymph nodes. No other significant abnormalities are identified. There has been no significant change since the prior study. BI/SCRN MAMM (CAD)W/DAPHNE BILAT IMPRESSION: Stable bilateral screening mammogram. Yearly follow-up mammogram recommended. (A) ASSESSMENT CATEGORY: BIRADS Category 2: Benign. A letter regarding these results will be sent to the patient by the facility within 30 days. Approximately 10% of breast cancers are not detected by mammography. A normal mammogram should not delay biopsy of a clinically suspicious abnormality. [id number] Electronically Signed: Merrick Beckham MD at 8:51 EDT ,
== END | disposition home or self-care (01) ==
LOC: OPBI 10-30 07:04
PROVIDERS: PCP Family Medicine; Referring Provider Nurse Practitioner Women's Health; Visit Provider Nurse Practitioner Women's Health
DX: Z12.31 Encounter for screening mammogram for malignant neoplasm of breast (principal)
CPT/HCPCS: 77063; 77067

== ENCOUNTER → 2023-08-15 | Outpatient (CLI) | payer BC, SELFPAY ==
--- OUTSIDE RECORDS SUMMARY | 2023-08-15 07:42 | XMS RPT_ITS | CCD ---
Author Name Unknown Address [address] [place] [address] Organization [facility] Care Team Providers Care Computer Operations Manager Name Role Phone MARKJONESLENA Unavailable Unavailable Unknown, Unknown Unavailable Unavailable Unavailable Unavailable Gabby Stovall Unavailable PASTOR LEWIS Unavailable PCP, Other Primary Care Physician KIMI SHERMAN Unavailable PASTOR LEWIS Attending Unavailable PCP, OTHER Primary Care Unavailable PASTOR LEWIS Attending Unavailable PCP, OTHER Primary Care Unavailable PASTOR LEWIS Attending Unavailable PCP, OTHER Primary Care Unavailable PASTOR LEWIS Attending Unavailable PCP, OTHER Primary Care Unavailable NASIMA KLINE Referring Unavailable Unavailable Primary Care Provider UnavailNASIMA Fox Referring Unavailable PASTOR LEWIS Attending Unavailable PASTOR LEWIS Referring Unavailable PASTOR LEWIS Referring Unavailable PASTOR LEWIS Attending Unavailable NASIMA KLINE Referring Unavailable PASTOR LEWIS Referring Unavailable PASTOR LEWIS Attending Unavailable PASTOR LEWIS Referring Unavailable SHANICETICPASTOR Referring Unavailable PASTOR LEWIS Attending Unavailable NASIMA KLINE Attending Unavailable NASIMA KLINE Attending Unavailable PASTOR LEWIS Attending Unavailable NASIMA KLINE Referring Unavailable PASTOR LEWIS Referring Unavailable PASTOR LEWIS Attending Unavailable PASTOR LEWIS Attending Unavailable Allergies Allergy Classification Reported Allergen(s) Allergy Type Date of Onset Reaction(s) Facility (5 sources) Sulfonamides (Antibiotic); Translations: [Sulfa Drugs] Allergy to drug (finding) [facility] Work Phone: (1 source) Dust; Translations: [DUST] allergy to substance 07-13-19 congestion [facility] Work Phone: (8 sources) Kingdom Animalia; Translations: [ANIMALS] allergy to substance 07-13-19 congestion, Unknown [facility] Work Phone: (16 sources) Mold Extract; Translations: [MOLD] Drug Allergy 07-13-19 Other [facility] Work Phone: (8 sources) Sulfacetamide Drug Allergy 07-13-19 hives, rash, Unknown [facility] Work Phone: (1 source) PLANT POLLENS; Translations: [PLANT POLLENS] allergy to substance 08-01-19 congestion [facility] Work Phone: (7 sources) House dust mite Drug allergy Unknown [facility] [employer] Other (7 sources) Pollen Drug allergy Unknown [facility] [employer] Other (20 sources) Sulfonamides (Antibiotic); Translations: [SULFA SULFONAMIDE ANTIBIOTICS] Drug allergy (disorder) 02-22-20 Rash Injection Site, Rash [facility] (3 sources) Sulfonamides (Antibiotic); Translations: [SULFA (SULFONAMIDE ANTIBIOTICS)] Propensity to adverse reactions to drug (disorder) 02-22-20 [facility] 3 Repository (8 sources) nabumetone; Translations: [NABUMETONE] Drug Allergy 10-17-[address] [facility] Work Phone: (8 sources) Triamcinolone; Translations: [TRIAMCINOLONE] Drug Allergy 10-17-[address] [facility] Work Phone: (8 sources) House Dust Mite; Translations: [HOUSE DUST MITE] Allergy to substance 07-08-19 [facility] NEGATED: Highlighted row has been ruled out! (2 sources) natural latex rubber; Translations: [LATEX, NATURAL RUBBER] Drug allergy (disorder) [facility] [place] NEGATED: Highlighted row has been ruled out! (2 sources) No IV Contrast Allergy.; Translations: [IV Dye, Iodine Containing] Drug allergy (disorder) [facility] [place] Medications Current Medications Medication Drug Class(es) Dates Sig (Normalized) Sig (Original) 8 hr acetaminophen 650 mg extended release oral tablet (20 sources) take 2 tablets by mouth every eight hours as needed acetaminophen (Tylenol 8 Hour) 650 mg ER tablet Take 2 tablets (1,300 mg) by mouth every 8 hours if needed. 0 Active Jaimie-D 24 Hour (7 sources) Jaimie-D 24 Thalia r Active 12 hr fexofenadine hydrochloride 60 mg / pseudoephedrine hydrochloride 120 mg extended release oral tablet (20 sources) alpha-Adrenergic Agonist, Histamine-1 Receptor Antagonist Start: 03-16-2021 fexofenadine-pseudo ephedrine (Jaimie-D 12 Hour) 60-120 mg 12 hr tablet Take by mouth. 0 03/16/2021 Active Completed/Discontinued Medications Medication Drug Class(es) Dates Sig (Normalized) Sig (Original) budesonide 3 mg delayed release oral capsule (9 sources) Corticosteroid Start: 03-16-2021 End: 04-11-2023 take 1 capsule by mouth every twenty-four hours budesonide EC (Entocort EC) 3 mg 24 hr capsule Take 1 capsule (3 mg) by mouth. 0 03/16/2021 04/11/2023 Discontinued Problems Active Problems Problem Classification Problem Date Documented Date Episodic/Chronic Menstrual disorders (6 sources) Menometrorrhagia; Translations: [Excessive and frequent menstruation with irregular cycle] Onset: 07-23-2022 07-08-2023 Chronic Other connective tissue disease (4 sources) Muscle wasting and atrophy, not elsewhere classified, other site; Translations: [Muscle wasting and atrophy, not elsewhere classified, other site] Onset: 01-03-2022 Resolved: 01-03-2022 Episodic Other female genital disorders (6 sources) Abnormal uterine bleeding; Translations: [Abnormal uterine and vaginal bleeding, unspecified] Onset: 07-08-2023 07-08-2023 Chronic Other nervous system disorders (20 sources) Chronic pain; Translations: [Other chronic pain] Onset: 02-21-2023 02-21-2023 Chronic Other nervous system disorders (3 sources) Other chronic pain; Translations: [Other chronic pain] Onset: 02-21-2023 Chronic Other nutritional; endocrine; and metabolic disorders (7 sources) Obesity; Translations: [Obesity, unspecified] Onset: 03-21-2020 03-22-2020 Chronic Residual codes; unclassified (1 source) History of surgical procedure on cervical spine; Translations: [Other specified postprocedural states] Onset: 06-07-2021 06-07-2021 Episodic Spondylosis; intervertebral disc disorders; other back problems (20 sources) Degeneration of cervical intervertebral disc; Translations: [Other cervical disc degeneration, unspecified cervical region] Onset: 03-21-2020 Resolved: 01-03-2022 04-10-2021 Chronic Spondylosis; intervertebral disc disorders; other back problems (20 sources) Neck pain; Translations: [Cervicalgia] Onset: 03-21-2020 Resolved: 01-03-2022 09-05-2020 Episodic Unclassified (1 source) Abnormal findings on diagnostic imaging of other specified body structures; Translations: [Abnormal findings on diagnostic imaging of other specified body structures] Onset: 09-18-2017 Episodic Unclassified (1 source) Vertebrogenic low back pain; Translations: [Vertebrogenic low back pain] Onset: 07-08-2023 Past or Other Problems Problem Classification Problem Date Documented Date Episodic/Chronic Allergic reactions (1 source) Allergy status to sulfonamides status; Translations: [Allergy status to sulfonamides] Onset: 09-20-2022 Episodic Other aftercare (1 source) Follow-up status; Translations: [Encounter for other orthopedic aftercare] Onset: 05-27-2019 05-27-2019 Episodic Other connective tissue disease (7 sources) Trochanteric bursitis; Translations: [Trochanteric bursitis, right hip] Onset: 04-11-2020 04-11-2020 Episodic Other connective tissue disease (7 sources) Adhesive capsulitis of shoulder; Translations: [Adhesive capsulitis of right shoulder] Onset: 07-31-2018 07-31-2018 Episodic Other connective tissue disease (7 sources) Biceps tendinitis; Translations: [Bicipital tendinitis, right shoulder] Onset: 07-13-2018 07-13-2018 Episodic Other connective tissue disease (7 sources) Impingement syndrome of shoulder region; Translations: [Impingement syndrome of right shoulder] Onset: 07-13-2018 07-13-2018 Episodic Other connective tissue disease (7 sources) Disorder of rotator cuff; Translations: [Unspecified rotator cuff tear or rupture of right shoulder, not specified as traumatic] Onset: 07-13-2018 07-13-2018 Episodic Other connective tissue disease (20 sources) Muscle atrophy; Translations: [Muscle wasting and atrophy, not elsewhere classified, other site] Onset: 02-21-2023 02-21-2023 Episodic Other injuries and conditions due to external causes (1 source) At risk for falls ; Translations: [History of falling] Onset: 03-21-2020 03-22-2020 Episodic Other injuries and conditions due to external causes (7 sources) Injury of ankle; Translations: [Unspecified injury of muscle(s) and tendon(s) of peroneal muscle group at lower leg level, right leg, initial encounter] Onset: 11-03-2018 11-04-2018 Episodic Other non-traumatic joint disorders (20 sources) Shoulder joint pain; Translations: [Pain in unspecified shoulder] Onset: 04-26-2005 03-26-2023 Episodic Residual codes; unclassified (7 sources) History of arthroscopic procedure on shoulder; Translations: [Other specified postprocedural states] Onset: 06-08-2019 06-13-2019 Episodic Unclassified (1 source) Problem Unclassified (19 sources) Onset: 03-27-2023 Resolved: 08-12-2023 03-27-2023 Unclassified (1 source) Vertebrogenic low back pain; Translations: [Vertebrogenic low back pain] Onset: 07-08-2023 Results Test Name Value Interpretation Reference Range Facil ity Vital Signs Date Time Vital Sign Value Performing Clinician Facility 07-25-2023 08:26-0500 Diastolic blood pressure 80 mm[Hg] Tri [address] [facility] 07-25-2023 08:26-0500 Heart rate 89 /min Tri [address] [facility] 07-25-2023 08:26-0500 Respiratory rate 17 /min Tri [address] [facility] 07-25-2023 08:26-0500 Systolic blood pressure 125 mm[Hg] Tri [address] [facility] 07-25-2023 08:19-0500 Body temperature 96.8 [degF] Tri [address] [facility] 07-25-2023 08:19-0500 SaO2% (BldA) [Mass fraction] 100 % Tri [address] [facility] 07-25-2023 07:01-0500 Body height 157.5 cm Tri [address] [facility] 07-25-2023 07:01-0500 Body mass index (BMI) [Ratio] 42.07 kg/m2 Tri [address] [facility] 07-25-2023 07:01-0500 Body temperature 96.8 [degF] Tri [address] [facility] 07-25-2023 07:01-0500 Body weight 104.33 kg Tri [address] [facility] 07-25-2023 07:01-0500 Diastolic blood pressure 87 mm[Hg] Tri [address] [facility] 07-25-2023 07:01-0500 Heart rate 96 /min Tri [address] [facility] 07-25-2023 07:01-0500 Respiratory rate 16 /min Tri [address] [facility] 07-25-2023 07:01-0500 SaO2% (BldA) [Mass fraction] 100 % Tri [address] [facility] 07-25-2023 07:01-0500 Systolic blood pressure 141 mm[Hg] Tri [address] [facility] 07-08-2023 15:43-0500 Body height 157.5 cm Pastor Lewis MD Work Phone: [facility] 07-08-2023 15:43-0500 Body mass index (BMI) [Ratio] 42.07 kg/m2 Pastor Lewis MD Work Phone: [facility] 07-08-2023 15:43-0500 Body weight 104.33 kg Pastor Lewis MD Work Phone: [facility] 07-08-2023 15:43-0500 Diastolic blood pressure 84 mm[Hg] Pastor Lewis MD Work Phone: [facility] 07-08-2023 15:43-0500 Heart rate 91 /min Pastor Lewis MD Work Phone: [facility] 07-08-2023 15:43-0500 Respiratory rate 16 /min Pastor Lewis MD Work Phone: [facility] 07-08-2023 15:43-0500 Systolic blood pressure 134 mm[Hg] Pastor Lewis MD Work Phone: [facility] 05-30-2023 08:39-0500 Diastolic blood pressure 65 mm[Hg] [address] 05-30-2023 08:39-0500 Systolic blood pressure 138 mm[Hg] [address] 05-30-2023 08:29-0500 Body height 157.[address] 05-30-2023 08:29-0500 Body mass index (BMI) [Ratio] 42.07 kg/m2 [address] 05-30-2023 08:29-0500 Body temperature 97 [degF] [address] 05-30-2023 08:29-0500 Body weight 104.[address] 05-30-2023 08:29-0500 Heart rate 101 /min [address] 05-30-2023 08:29-0500 Respiratory rate 18 /min [address] 05-30-2023 08:29-0500 SaO2% (BldA) [Mass fraction] 99 % [address] 05-20-2023 10:29-0500 Body height 157.5 cm Nasima Kline EDUCATION TRAINER-ARCHITECTURAL DESIGNER Work Phone: [facility] 05-20-2023 10:29-0500 Body mass index (BMI) [Ratio] 39.32 kg/m2 Nasima Kline EDUCATION TRAINER-ARCHITECTURAL DESIGNER Work Phone: [facility] 05-20-2023 10:29-0500 Body weight 97.52 kg Nasima Kline EDUCATION TRAINER-ARCHITECTURAL DESIGNER Work Phone: [facility] 05-09-2023 13:34-0500 Body temperature 97.9 [degF] Tri [address] [facility] 05-09-2023 13:34-0500 Diastolic blood pressure 80 mm[Hg] Tri [address] [facility] 05-09-2023 13:34-0500 Heart rate 85 /min Tri [address] [facility] 05-09-2023 13:34-0500 Respiratory rate 17 /min Tri [address] [facility] 05-09-2023 13:34-0500 SaO2% (BldA) [Mass fraction] 96 % Tri [address] [facility] 05-09-2023 13:34-0500 Systolic blood pressure 130 mm[Hg] Tri [address] [facility] 05-09-2023 12:27-0500 Body height 157.5 cm Tri [address] [facility] 05-09-2023 12:27-0500 Body mass index (BMI) [Ratio] 39.32 kg/m2 Tri [address] [facility] 05-09-2023 12:27-0500 Body temperature 97.9 [degF] Tri [address] [facility] 05-09-2023 12:27-0500 Body weight 97.52 kg Tri [address] [facility] 05-09-2023 12:27-0500 Diastolic blood pressure 93 mm[Hg] Tri [address] [facility] 05-09-2023 12:27-0500 Heart rate 92 /min Tri [address] [facility] 05-09-2023 12:27-0500 Respiratory rate 16 /min Tri [address] [facility] 05-09-2023 12:27-0500 SaO2% (BldA) [Mass fraction] 100 % Tri [address] [facility] 05-09-2023 12:27-0500 Systolic blood pressure 141 mm[Hg] Tri [address] [facility] 04-11-2023 13:53-0500 Body temperature 97.9 [degF] Tri [address] [facility] 04-11-2023 13:53-0500 Diastolic blood pressure 72 mm[Hg] Tri [address] [facility] 04-11-2023 13:53-0500 Heart rate 74 /min Tri [address] [facility] 04-11-2023 13:53-0500 Respiratory rate 17 /min Tri [address] [facility] 04-11-2023 13:53-0500 SaO2% (BldA) [Mass fraction] 100 % Tri [address] [facility] 04-11-2023 13:53-0500 Systolic blood pressure 118 mm[Hg] Tri [address] [facility] 03-29-2022 10:06-0400 Body height 157.48 cm MD Pastor Lewis MD [facility] 03-29-2022 10:06-0400 Body mass index (BMI) [Ratio] 38.4 kg/m2 MD Pastor Lewis MD [facility] 03-29-2022 10:06-0400 Body weight 95.25 kg MD Pastor Lewis MD [facility] 02-01-2022 13:41-0400 Body height 157.48 cm MD Pastor Lewis MD [facility] 02-01-2022 13:41-0400 Body mass index (BMI) [Ratio] 37.6 kg/m2 MD Pastor Lewis MD [facility] 02-01-2022 13:41-0400 Body weight 93.44 kg MD Pastor Lewis MD [facility] 01-03-2022 16:00-0400 Body height 157.48 cm PASTOR LEWIS Other [facility] [employer] Other 01-03-2022 16:00-0400 Body mass index (BMI) [Ratio] 37.31 kg/m2 PASTOR LEWIS Other [facility] [employer] Other 01-03-2022 16:00-0400 Body weight 92.53 kg PASTOR LEWIS Other [facility] Other 01-03-2022 16:00-0400 Diastolic blood pressure 78 mm[Hg] PASTOR VUCETIC Other [facility] Other 01-03-2022 16:00-0400 Heart rate 87 /min PASTOR VUCETIC Other [facility]. Other 01-03-2022 16:00-0400 Respiratory rate 16 /min PASTOR VUCETIC Other [facility]. Other 01-03-2022 16:00-0400 Systolic blood pressure 141 mm[Hg] PASTOR VUCETIC Other [facility] Other 03-16-2021 13:42-0400 Body height 157.[address] [facility] Work Phone: 03-16-2021 13:42-0400 Body mass index (BMI) [Ratio] 34.75 kg/m2 Unknown Unknown [facility] Work Phone: 03-16-2021 13:42-0400 Body surface area Derived from formula 1.[address] [facility] Work Phone: 03-16-2021 13:42-0400 Body weight 86.[address] [facility] Work Phone: NEGATED: Highlighted [id number] 15:22-0500 Body height 157.48 cm Neli Darden [facility] Work Phone: NEGATED: Highlighted [id number] 15:22-0500 Body height 157 cm Neli Darden [facility] Work Phone: NEGATED: Highlighted [id number] 15:22-0500 Body mass index (BMI) [Ratio] 36.71 kg/m2 Neli Darden CURRICULUM DEVELOPER [facility] Work Phone: NEGATED: Highlighted [id number] 15:22-0500 Body weight 90.72 kg Neli Darden CURRICULUM DEVELOPER [facility] Work Phone: NEGATED: Highlighted [id number] 15:-050 Body weight [address] [facility] Work Phone: Encounters Encounter Date Encounter Type Care Provider Facility Start: 08-12-2023 End: 08-12-2023 ambulatory PASTOR LEWIS [facility] Start: 08-12-2023 End: 08-12-2023 Office outpatient visit 15 minutes Pastor Lewis MD Work Phone: [facility] Procedures Date Procedure Procedure Detail Performing Clinician Start: 07-25-2023 FL LESS THAN 1 HOUR JOY KLINE Start: 07-25-2023 DISCHARGE PATIENT GUERA JENNIFER KLINE Start: 07-25-2023 DISCONTINUE IV JOSEP KLINE Start: 07-25-2023 NURSING COMMUNICATION Nazia KLINE Start: 07-25-2023 ADULT DISCHARGE DIET ARGELIA KLINE Start: 07-25-2023 FOLLOW UP WITH PROVIDER NASIMA KLINE Start: 07-25-2023 Epidural steroid injection NASIMA KLINE Start: 07-25-2023 Fluoroscopy up to 1 hour physician/qhp time Pastor Lewis MD Work Phone: Start: 05-30-2023 FL LESS THAN 1 HOUR ANDREA LEWIS Start: 05-30-2023 DISCHARGE PATIENT PASTOR LEWIS Start: 05-30-2023 ADULT DISCHARGE DIET HE NRY VUCETIC Start: 05-30-2023 FOLLOW UP WITH PROVIDER PASTOR LEWIS Start: 05-30-2023 RADIOFREQUENCY ABLATION PASTOR LEWIS Start: 05-30-2023 Fluoroscopy up to 1 hour physician/qhp time Pastor Lewis MD Work Phone: Start: 05-20-2023 Follow-up visit Follow-up DELIA KLINE Start: 05-09-2023 FL LESS THAN 1 HOUR JOY KLINE Start: 05-09-2023 DISCHARGE PATIENT GUERA RODRIGUEZ OLMAN Start: 05-09-2023 ADULT DISCHARGE DIET ARGELIA HenryROMAN Start: 05-09-2023 FOLLOW UP WITH PROVIDER NASIMA KLINE Start: 05-09-2023 MEDIAL NERVE BRANCH BLOCK NASIMA KLINE Start: 04-11-2023 DISCHARGE PATIENT GUERA Henry'ROMAN Start: 04-11-2023 ADULT DISCHARGE DIET KA ARUNINE Elaine'ROMAN Start: 04-11-2023 FOLLOW UP WITH PROVIDER NASIMA KLINE Start: 04-11-2023 FL LESS THAN 1 HOUR JOY KLINE Start: 04-11-2023 MEDIAL NERVE BRANCH BLOCK NASIMA KLINE Start: 03-04-2023 MR LUMBAR SPINE WO I V CONTRAST NASIMA KLINE Start: 03-04-2023 Mri spinal canal lum bar w/o contrast material Nasima Kline EDUCATION TRAINER-ARCHITECTURAL DESIGNER Work Phone: Start: 02-01-2022 Completed NJX AA&/ST RD TFRM EPI L/S 1, Bilateral, on 02/01/2022 1:31 PM MD Pastor Lewis MD Start: 08-07-2021 End: 08-07-2021 BP scrn no perf at interval Gabby Rider EDUCATION TRAINER-ARCHITECTURAL DESIGNER Work Phone: Start: 08-07-2021 End: 08-07-2021 Calc BMI abv up sally f/u Gabby hanley EDUCATION TRAINER-ARCHITECTURAL DESIGNER Work Phone: Start: 08-07-2021 End: 08-07-2021 Current tobacco non-user cad cap copd pv dm Gabby Rider EDUCATION TRAINER-ARCHITECTURAL DESIGNER Work Phone: Start: 08-07-2021 End: 08-07-2021 Docrev cur meds by osiel Rider EDUCATION TRAINER-ARCHITECTURAL DESIGNER Work Phone: Start: 08-07-2021 End: 08-07-2021 Pain neg no plan Gabby Adry EDUCATION TRAINER-ARCHITECTURAL DESIGNER Work Phone: Start: 08-07-2021 End: 08-07-2021 Patient encounter procedure Gabby Adry EDUCATION TRAINER-ARCHITECTURAL DESIGNER Work Phone: NEGATED: Highlighted rowStart: 08-07-2021 End: 08-07-2021 Documentation of current medications Neli Darden LPN Plan of Treatment Date Care Activity Detail Author Start: 2024 Zoster Vaccines (1 of 2) Zoster Vaccines (1 of 2) [facility] Start: 08-12-2023 End: 08-12-2023 Telemedicine consultation with patient 08/12/2023 11:45 AM EDT Telemedicine [facility] [address] [place] [id number] Pastor Lewis MD [address] [address] [facility] Start: 07-25-2023 End: 07-25-2023 Patient encounter procedure 07/25/2023 12:30 PM EST Appointment [facility] [address] [place] [id number] Pastor Lewis MD [address] [address] [facility] Start: 07-09-2023 End: 07-09-2024 Epidural steroid injection Epidural Steroid Injection Procedures Routine Cervical radiculopathy Expected: 07/09/2023 (Approximate), Expires: 07/09/2024 [facility] Service Area Work Phone: Immunizations Immunization Date Immunization Notes Care Provider [facility] 05-15-2009 novel [id number], all formulations aPstor Lewis MD Work Phone: [facility] Work Phone: 05-15-2009 influenza virus vaccine, unspecified formulation Pastor Lewis MD Work Phone: [facility] Work Phone: Payers Date Payer Category Payer [facility] [id number] 2021 Unknown 1974 Unknown [id number] 2.16.8 [id number]. 1974 Unknown [id number] 2.16.8 40.1.603513.3.579.2.3 1974 Unknown [id number] 2.16.8 40.1.732337.3.579.2.3 1974 Unknown [id number] 2.16.8 40.1.384180.3.579.2.1243 1974 Unknown [id number] 2.16.8 40.1.524506.3.579.2.1243 1974 Unknown [id number] 2.16.8 40.1.358977.3.579.2.1243 1974 Unknown [id number] 2.16.8 40.1.521173.3.579.2.1243 1974 Unknown [id number] 2.16.8 40.1.569779.3.579.2.1243 1974 Unknown [id number] 2.16.8 40.1.056772.3.579.2.1243 1974 Unknown [id number] 2.16.8 40.1.366930.3.579.2.1243 1974 Unknown [id number] 2.16.8 40.1.542385.3.579.2.1243 1974 Unknown [id number] 2.16.8 40.1.276315.3.579.2.1244 1974 Unknown [id number] 2.16.8 40.1.626512.3.579.2.1244 1974 Unknown [id number] 2.16.8 40.1.858318.3.579.2.1244 1974 Unknown [id number] 2.16.8 40.1.976801.3.579.2.1244 1974 Unknown [id number] 2.16.8 40.1.997682.3.579.2.1244 1974 Unknown [id number] 2.16.8 40.1.928070.3.579.2.4 1974 Unknown [id number] 2.16.8 40.1.299532.3.579.2.1244 Unknown [id number] 2.16.8 [id number] Social History Date Type Detail Facility Start: 03-27-2023 End: 05-20-2023 Never a smoker Never a smoker [facility] Work Phone: Start: 08-07-2021 End: 08-07-2021 Assertion Unknown if ever smoked [facility] Work Phone: Start: 01-03-2022 End: 03-27-2023 Tobacco smoking status KSIS Never Smoker [facility] Start: 03-27-2023 End: 05-20-2023 Sex Assigned At [facility] Start: 03-27-2023 Tobacco use and exposure Smokeless tobacco non-user [facility] Work Phone: Start: 03-27-2023 End: 05-09-2023 Alcohol intake Current drinker of alcohol (finding) [facility] Work Phone: Start: 03-27-2023 Alcohol Comment occasional [facility] Work Phone: Start: 1975 Sex Assigned At Not on file [facility] [facility] Work Phone: Start: 02-22-2023 End: 07-25-2023 Exposure to SARS-CoV-2 (event) Not sure [facility] Start: 05-20-2023 End: 08-12-2023 Alcohol intake Ex-drinker (finding) [facility] Work Phone: NEGATED: Highlighted rowStart: 08-07-2021 End: 08-07-2021 Employment detail Employment detail [facility] Work Phone: Clinical Notes 12-31-2020 to 08-12-2023 Pastor Lewis MD - 08/12/2023 11:45 AM EDTPost-Procedure Note - Liat Moeller RN - 07/25/2023 8:20 AM ESTOp Note - Pastor Lewis MD - 07/25/2023 8:00 AM ESTDischarge Instructions Note Date & Type Note Facility 08-12-2023 History of Present illness Narrative Subjective Patient ID: Isabelle Sheldon is a 48 y.o. female who presents for Neck Pain. Neck Pain Patient here today for virtual visit via audio and secure video platform. Patient reports she is 100% better after her cervical epidural steroid injection. She is experiencing no arm or neck pain at this time. She is very happy with the outcomes of this. She does note she continues to have a lump in her throat with swallowing and she thought this might improve with the epidural steroid injection but she feels she needs to follow-up with her primary care doctor now that it did not improve. She continues to have axial back pain as described in previous office visits with sitting for prolonged periods of time or with repetitive lumbar flexion. She is moving forward through the appeal process for the Intracept procedure. Review of Systems Constitutional: Negative. HENT: Negative. Eyes: Negative. Respiratory: Negative. Cardiovascular: Negative. Gastrointestinal: Negative. Endocrine: Negative. Genitourinary: Negative. Musculoskeletal: Positive for back pain. Skin: Negative. Allergic/Immunologic: Negative. Neurological: Negative. Hematological: Negative. Psychiatric/Behavioral: Negative. Objective Physical Exam Nursing note reviewed. Constitutional: Appearance: Normal appearance. Neurological: Mental Status: She is alert. Assessment/Plan Problem List Items Addressed This Visit None Visit Diagnoses Codes Postlaminectomy syndrome, cervical region - Primary M96.1 Vertebrogenic low back pain M54.51 I nice discussion with the patient today our plan will be as follows. Radiology: All available imaging was reviewed today. Physically: Patient should continue with home exercise program. Psychologically: No issues at this time. Medication: No changes at this time. Duration: Greater than 1 year. Intervention: Patient did excellent with epidural steroid injection. Patient receiving 100% relief in neck and arm pain. We can repeat when pain returns or as needed. Patient is continuing the appeal process for her Intracept procedure. Pastor Lewis MD 08/12/23 11:58 AM documented in this encounter [facility] Work Phone: 07-25-2023 Miscellaneous Notes Band aid dry and intact. No neuro deficits. Ready for discharge. Cookie and pop enjoyed. Wheelchair to in car per protocol for sedation. IV removed. Preprocedure diagnosis: Cervical radiculopathy Postprocedure diagnosis cervical radiculopathy Procedure performed: C6-7 epidural steroid injection under fluoroscopic guidance Physician: Pastor Lewis MD Anesthesia: Conscious sedation Complications: none Blood loss: none Clinical note: This is a very pleasant 48-year-old female who suffers with neck and arm pain here meeting all medical criteria for above-mentioned procedure. Procedure: The patient was identified in the preoperative area. The procedure was discussed in detail including its risks, benefits and alternatives. Signed consent was obtained and the patient agreed to proceed. The patient was brought to the [facility] procedure room and was positioned in the prone position onto the procedure room table. A pillow was placed below the patient's chest. A safety strap was placed across the legs. The cervical region was then exposed, prepped and draped in the usual sterile fashion using 2% Chloroprep scrub. After that, under fluoroscopic guidance in the AP view the C6-7 intralaminar space was identified. The intended entry point was marked onto the skin and then 10 ml of 2% preservative-free lidocaine was injected using a 25 gauge needle to anesthetize the skin and subcutaneous tissues along the intended needle trajectory. Next, an 18 Tuohy needle was advanced under intermittent fluoroscopic guidance until bony contact was made with the lamina of C7. The Tuohy needle was then walked off the lamina in a cephalad manner into the C6-7 intralaminar space. Using a loss of resistance technique, the epidural space was entered with ease. Images were taken in the AP and contralateral oblique views. The stylette was removed from the needle and the needle was aspirated, which was negative for heme and CSF. After that, 1 ml of Omnipaque contrast dye was injected into the needle under live fluoroscopy which showed appropriate epidural spread without intravascular or intrathecal uptake. Then after another negative aspirate, 40 mg of methylprednisolone mixed with 4 mL of preservative-free normal saline was injected via the Tuohy needle. The needle was then removed and a bandage was applied. The patient tolerated the procedure well and was transferred back to the discharge area. The patient was monitored for 15 minutes and vital signs were stable. The patient was discharged home in stable condition with a recycle driver. documented in this encounter [facility] Work Phone: 07-25-2023 Note Formatting of this n ote might be different from the original. Band aid dry and intact. No neuro deficits. Ready for discharge. Cookie and pop enjoyed. Wheelchair to in car per protocol for sedation. IV removed. [facility] Work Phone: 07-25-2023 Note Formatting of this n ote might be different from the original. Band aid dry and intact. No neuro deficits. Ready for discharge. Cookie and pop enjoyed. Wheelchair to in car per protocol for sedation. IV removed. [facility] Work Phone: 07-25-2023 Hospital Discharge instructions Pastor Lewis MD - 07/25/2023 8:04 AM EST DISCHARGE INSTRUCTIONS FOR INJECTIONS You underwent Cervical Epidural today Aftermost injections, it is recommended that you relax and limit your activity for the remainder of the day unless you have been told otherwise by your pain physician. You should not drive a car, operate machinery, or make important legal decisions unless otherwise directed by your pain physician. You may resume your normal activity, including exercise, tomorrow. Keep a written pain diary of how much pain relief you experienced following the injection procedure and the length of time of pain relief you experienced pain relief. Following diagnostic injections like medial branch nerve blocks, sacroiliac joint blocks, stellate ganglion injections and other blocks, it is very important you record the specific amount of pain relief you experienced immediately after the injectionand how long it lasted. Your doctor will ask you for this information at your follow up visit. For all injections, please keep the injection site dry and inspect the site for a couple of days. You may remove the Band-Aid the day of the injection at any time. Some discomfort, bruising or slight swelling may occur at the injection site. This is not abnormal if it occurs. If needed you may: -Take over the counter medication such as Tylenol or Motrin. -Apply an ice pack for 30 minutes, 2 to 3 times a day for the first 24 hours. You may shower today; no soaking baths, hot tubs, whirlpools or swimming pools for two days. If you are given steroids in your injection, it may take 3-5 days for the steroid medication to take effect. You may notice a worsening of your symptoms for 1-2 days after the injection. This is not abnormal. You may use acetaminophen, ibuprofen, or prescription medication that your doctor may have prescribed for you if you need to do so. A few common side effects of steroids include facial flushing, sweating, restlessness, irritability,difficulty sleeping, increase in blood sugar, and increased blood pressure. If you have diabetes, please monitor your blood sugar at least once a day for at least 5 days. If you have poorly controlled high blood pressure, monitoryour blood pressure for at least 2 days and contact your primary care physician if these numbers are unusually high for you. If you take aspirin or non-steroidal anti-inflammatory drugs (examples are Motrin, Advil, ibuprofen, Naprosyn, Voltaren, Relafen, etc.) you may restart these this evening, but stop taking it 3 days before your next appointment, unless instructed otherwiseby your physician. You do not need to discontinue oep-cfwehmv-ehkpmkspwv pain medications prior to an injection (examples: Celebrex, tramadol, hydrocodone and acetaminophen). If you take a blood thinning medication (Coumadin, Lovenox, Fragmin,Ticlid, Plavix, Pradaxa, etc.), please discuss this with your primary care physician/perl developer and your pain physician. These medications MUST be discontinued before you can have an injection safely, without the risk of uncontrolled bleeding. If these medications are not discontinued for an appropriate period of time, you will not be able to receivean injection. If you are taking Coumadin, please have your INR checked the morning of your procedure and bringthe result to your appointment unless otherwise instructed. If your INR is over 1.2, your injection may need to be rescheduled to avoid uncontrolled bleeding from the needle placement. Call [facility] at [phone] between 8am-4pm Friday - Friday if you are experiencing the following: If you received an epidural or spinal injection: -Headache that doesnot go away with medicine, is worse when sitting or standing up, and is greatly relieved upon lying down. -Severe pain worse than or different than your baseline pain. -Chills or fever (101 F or greater). -Drainage or signs of infection at the injection site Go directly to the Emergency Department if you are experiencing the following and received an epidural or spinal injection: -Abrupt weakness or progressive weakness in your legs that starts after you leave the clinic. -Abrupt severe or worsening numbness in your legs. -Inability to urinate after the injection or loss of bowel or bladder control without the urge to defecate or urinate. If you have a clinical question that cannot wait until your next appointment, please call [phone] between 8am-4pm Friday - Friday or send a MyChart message. We do our best to return all non-emergency messages within 24 hours, Friday - Friday. A nurse or physician will return your message. If you need to cancel an appointment, please call the scheduling staff at [phone] during normal business hours or leave a message at least 24 hours in advance. If you are going to be sedated for your next procedure, you MUST have responsible adult who can legally drive accompany you home. You cannot eat or drink for eight hours prior to the planned procedure if you are going to receive sedation. You may take your non-blood thinning medications with a small sip of water. documented in this encounter [facility] Work Phone: 07-25-2023 Attending History and physical note H&P reviewed. The patient was examined and there are no changes to the H&P. Source Note - Pastor Lewis MD - 07/08/2023 3:30 PM EST Images from the original note were not included. Subjective Patient ID: Isabelle Sheldon is a 48 y.o. female who presents for Neck Pain. HPI Patient here today to discuss her low back and neck pain. She has a previous two-level ACDF with Dr. Zamarripa at [facility] in the past. She is been having neck and radiating right arm pain down her hand along with weakness and numbness. She underwent new cervical MRI at [facility] which did show a new central disc herniation at C3-4 above her fusion. She went to consultation with Dr. Zamarripa who suggested her to follow-up and have cervical epidural steroid injection completed and to do additional physical therapy before she move forward with any surgical option at this time. She also wanted to discuss her axial back pain. She was denied the mainstay implant this year by her insurance. She has gone through epidural steroid injections, medial branch blocks, lumbar radiofrequency ablation however she still suffers with deep axial back pain that limits her ability to sit or to lumbar flex or lift anything. She describes as a deep gnawing ache in her back that does not radiate down into her lower extremities. Her most recent MRI was within the last year. She was very disappointed when the Mainstay device was not approved for her. She is wanting to know if there are any other options and wanted to go over her MRI today. She has done an extensive amount of physical therapy on her low back including chiropractic. She does do exercises on her back on a daily basis sometimes twice a day in order to get through the day. She has been using ynlc-gaf-tkqypvh medications on a as needed basis including anti-inflammatories and Tylenol. Review of Systems Constitutional: Negative. HENT: Negative. Eyes: Negative. Respiratory: Negative. Cardiovascular: Negative. Gastrointestinal: Negative. Endocrine: Negative. Genitourinary: Negative. Musculoskeletal: Positive for back pain, neck pain and neck stiffness. Skin: Negative. Allergic/Immunologic: Negative. Neurological: Positive for numbness and headaches. Hematological: Negative. Psychiatric/Behavioral: Negative. Objective Physical Exam Vitals and nursing note reviewed. Constitutional: Appearance: Normal appearance. HENT: Head: Normocephalic and atraumatic. Right Ear: Ear canal and external ear normal. Left Ear: Ear canal and external ear normal. Nose: Nose normal. Mouth/Throat: Mouth: Mucous membranes are moist. Pharynx: Oropharynx is clear. Eyes: Conjunctiva/sclera: Conjunctivae normal. Pupils: Pupils are equal, round, and reactive to light. Cardiovascular: Rate and Rhythm: Normal rate. Pulmonary: Effort: Pulmonary effort is normal. No respiratory distress. Musculoskeletal: Cervical back: Neck supple. Tenderness present. Pain with movement present. Decreased range of motion. Thoracic back: No spasms or tenderness. Normal range of motion. Lumbar back: Tenderness present. Decreased range of motion. Negative right straight leg raise test and negative left straight leg raise test. Back: Comments: Patient has decreased range of motion in flexion causing pain. SI provocation negative bilaterally. Prone instability test positive Skin: General: Skin is warm and dry. Neurological: Mental Status: She is alert and oriented to person, place, and time. Sensory: Sensation is intact. Motor: Motor function is intact. Coordination: Coordination is intact. Gait: Gait is intact. Deep Tendon Reflexes: Reflex Scores: Bicep reflexes are 2+ on the right side and 2+ on the left side. Brachioradialis reflexes are 2+ on the right side and 2+ on the left side. Comments: Enriqueta sign negative bilaterally Psychiatric: Mood and Affect: Mood normal. Thought Content: Thought content normal. Assessment/Plan Problem List Items Addressed This Visit None Visit Diagnoses Codes Cervical disc herniation - Primary M50.20 Cervical radiculopathy M54.12 I nice discussion with the patient today our plan will be as follows. Radiology: I went over the patient's lumbar MRI with her again today. She does suffer with degenerative disc disease at the L4-5 level. There is subtle Modic endplate changes seen at L4 and L5. She has spondylosis at L4-5 and L5-S1. 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 Physically: Patient to Continue to work on lumbar and multifidus strengthening. Psychologically: BHA is in the chart for scs or pns in the future. Medication: no changes Duration: > 1 years Intervention: Patient with previous history of ACDF with Dr. Zamarripa at [facility]. She brought in her new MRI today which does show a new central disc herniation at C3-4. Her surgeon did recommend her to undergo cervical epidural steroid injection as she is having neck and right arm pain. I will get her set up for C6-7 epidural steroid injection under fluoroscopic guidance. Risks, benefit, and alternatives of the procedure were discussed with the patient. Oswestry score has been compelted and recorded. Given the patient's chronic axial back pain that is worse with sitting and lumbar flexion. She has failed conservative physical therapy along with chiropractic and massotherapy. She has undergone epidural steroid injections as well as medial branch blocks. She has been on mbcr-wfj-muiercw anti-inflammatories and Tylenol for greater than 1 year. Her pain continues to be debilitating for her. Given her pathology seen on her last MRI I do think it is important to move forward with L4-L5 Intracept procedure. Risks, benefit, and alternatives of the procedure were discussed with the patient. Oswestry score has been compelted and recorded. Pastor Lewis MD 07/08/23 4:[address] [facility] Work Phone: 07-25-2023 History and physical note H&P reviewed. The patient was examined and there are no changes to the H&P. Source Note - Pastor Lewis MD - 07/08/2023 3:30 PM EST Images from the original note were not included. Subjective Patient ID: Isabelle Sheldon is a 48 y.o. female who presents for Neck Pain. HPI Patient here today to discuss her low back and neck pain. She has a previous two-level ACDF with Dr. Zamarripa at [facility] in the past. She is been having neck and radiating right arm pain down her hand along with weakness and numbness. She underwent new cervical MRI at [facility] which did show a new central disc herniation at C3-4 above her fusion. She went to consultation with Dr. Zamarripa who suggested her to follow-up and have cervical epidural steroid injection completed and to do additional physical therapy before she move forward with any surgical option at this time. She also wanted to discuss her axial back pain. She was denied the mainstay implant this year by her insurance. She has gone through epidural steroid injections, medial branch blocks, lumbar radiofrequency ablation however she still suffers with deep axial back pain that limits her ability to sit or to lumbar flex or lift anything. She describes as a deep gnawing ache in her back that does not radiate down into her lower extremities. Her most recent MRI was within the last year. She was very disappointed when the Mainstay device was not approved for her. She is wanting to know if there are any other options and wanted to go over her MRI today. She has done an extensive amount of physical therapy on her low back including chiropractic. She does do exercises on her back on a daily basis sometimes twice a day in order to get through the day. She has been using kxgg-zzd-xwwnbym medications on a as needed basis including anti-inflammatories and Tylenol. Review of Systems Constitutional: Negative. HENT: Negative. Eyes: Negative. Respiratory: Negative. Cardiovascular: Negative. Gastrointestinal: Negative. Endocrine: Negative. Genitourinary: Negative. Musculoskeletal: Positive for back pain, neck pain and neck stiffness. Skin: Negative. Allergic/Immunologic: Negative. Neurological: Positive for numbness and headaches. Hematological: Negative. Psychiatric/Behavioral: Negative. Objective Physical Exam Vitals and nursing note reviewed. Constitutional: Appearance: Normal appearance. HENT: Head: Normocephalic and atraumatic. Right Ear: Ear canal and external ear normal. Left Ear: Ear canal and external ear normal. Nose: Nose normal. Mouth/Throat: Mouth: Mucous membranes are moist. Pharynx: Oropharynx is clear. Eyes: Conjunctiva/sclera: Conjunctivae normal. Pupils: Pupils are equal, round, and reactive to light. Cardiovascular: Rate and Rhythm: Normal rate. Pulmonary: Effort: Pulmonary effort is normal. No respiratory distress. Musculoskeletal: Cervical back: Neck supple. Tenderness present. Pain with movement present. Decreased range of motion. Thoracic back: No spasms or tenderness. Normal range of motion. Lumbar back: Tenderness present. Decreased range of motion. Negative right straight leg raise test and negative left straight leg raise test. Back: Comments: Patient has decreased range of motion in flexion causing pain. SI provocation negative bilaterally. Prone instability test positive Skin: General: Skin is warm and dry. Neurological: Mental Status: She is alert and oriented to person, place, and time. Sensory: Sensation is intact. Motor: Motor function is intact. Coordination: Coordination is intact. Gait: Gait is intact. Deep Tendon Reflexes: Reflex Scores: Bicep reflexes are 2+ on the right side and 2+ on the left side. Brachioradialis reflexes are 2+ on the right side and 2+ on the left side. Comments: Enriqueta sign negative bilaterally Psychiatric: Mood and Affect: Mood normal. Thought Content: Thought content normal. Assessment/Plan Problem List Items Addressed This Visit None Visit Diagnoses Codes Cervical disc herniation - Primary M50.20 Cervical radiculopathy M54.12 I nice discussion with the patient today our plan will be as follows. Radiology: I went over the patient's lumbar MRI with her again today. She does suffer with degenerative disc disease at the L4-5 level. There is subtle Modic endplate changes seen at L4 and L5. She has spondylosis at L4-5 and L5-S1. 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 Physically: Patient to Continue to work on lumbar and multifidus strengthening. Psychologically: BHKem is in the chart for scs or pns in the future. Medication: no changes Duration: > 1 years Intervention: Patient with previous history of ACDF with Dr. Zamarripa at [facility]. She brought in her new MRI today which does show a new central disc herniation at C3-4. Her surgeon did recommend her to undergo cervical epidural steroid injection as she is having neck and right arm pain. I will get her set up for C6-7 epidural steroid injection under fluoroscopic guidance. Risks, benefit, and alternatives of the procedure were discussed with the patient. Oswestry score has been compelted and recorded. Given the patient's chronic axial back pain that is worse with sitting and lumbar flexion. She has failed conservative physical therapy along with chiropractic and massotherapy. She has undergone epidural steroid injections as well as medial branch blocks. She has been on mqkd-soe-qphlqaf anti-inflammatories and Tylenol for greater than 1 year. Her pain continues to be debilitating for her. Given her pathology seen on her last MRI I do think it is important to move forward with L4-L5 Intracept procedure. Risks, benefit, and alternatives of the procedure were discussed with the patient. Oswestry score has been compelted and recorded. Pastor Lewis MD 07/08/23 4:14 PM documented in this encounter [facility] Work Phone: 07-25-2023 Note Formatting of this n ote might be different from the original. Preprocedure diagnosis: Cervical radiculopathy Postprocedure diagnosis cervical radiculopathy Procedure performed: C6-7 epidural steroid injection under fluoroscopic guidance Physician: Pastor Lewis MD Anesthesia: Conscious sedation Complications: none Blood loss: none Clinical note: This is a very pleasant 48-year-old female who suffers with neck and arm pain here meeting all medical criteria for above-mentioned procedure. Procedure: The patient was identified in the preoperative area. The procedure was discussed in detail including its risks, benefits and alternatives. Signed consent was obtained and the patient agreed to proceed. The patient was brought to the [facility] procedure room and was positioned in the prone position onto the procedure room table. A pillow was placed below the patient's chest. A safety strap was placed across the legs. The cervical region was then exposed, prepped and draped in the usual sterile fashion using 2% Chloroprep scrub. After that, under fluoroscopic guidance in the AP view the C6-7 intralaminar space was identified. The intended entry point was marked onto the skin and then 10 ml of 2% preservative-free lidocaine was injected using a 25 gauge needle to anesthetize the skin and subcutaneous tissues along the intended needle trajectory. Next, an 18 Tuohy needle was advanced under intermittent fluoroscopic guidance until bony contact was made with the lamina of C7. The Tuohy needle was then walked off the lamina in a cephalad manner into the C6-7 intralaminar space. Using a loss of resistance technique, the epidural space was entered with ease. Images were taken in the AP and contralateral oblique views. The stylette was removed from the needle and the needle was aspirated, which was negative for heme and CSF. After that, 1 ml of Omnipaque contrast dye was injected into the needle under live fluoroscopy which showed appropriate epidural spread without intravascular or intrathecal uptake. Then after another negative aspirate, 40 mg of methylprednisolone mixed with 4 mL of preservative-free normal saline was injected via the Tuohy needle. The needle was then removed and a bandage was applied. The patient tolerated the procedure well and was transferred back to the discharge area. The patient was monitored for 15 minutes and vital signs were stable. The patient was discharged home in stable condition with a recycle driver. [facility] Work Phone: 07-25-2023 Note Formatting of this n ote might be different from the original. Preprocedure diagnosis: Cervical radiculopathy Postprocedure diagnosis cervical radiculopathy Procedure performed: C6-7 epidural steroid injection under fluoroscopic guidance Physician: Pastor Lewis MD Anesthesia: Conscious sedation Complications: none Blood loss: none Clinical note: This is a very pleasant 48-year-old female who suffers with neck and arm pain here meeting all medical criteria for above-mentioned procedure. Procedure: The patient was identified in the preoperative area. The procedure was discussed in detail including its risks, benefits and alternatives. Signed consent was obtained and the patient agreed to proceed. The patient was brought to the [facility] procedure room and was positioned in the prone position onto the procedure room table. A pillow was placed below the patient's chest. A safety strap was placed across the legs. The cervical region was then exposed, prepped and draped in the usual sterile fashion using 2% Chloroprep scrub. After that, under fluoroscopic guidance in the AP view the C6-7 intralaminar space was identified. The intended entry point was marked onto the skin and then 10 ml of 2% preservative-free lidocaine was injected using a 25 gauge needle to anesthetize the skin and subcutaneous tissues along the intended needle trajectory. Next, an 18 Tuohy needle was advanced under intermittent fluoroscopic guidance until bony contact was made with the lamina of C7. The Tuohy needle was then walked off the lamina in a cephalad manner into the C6-7 intralaminar space. Using a loss of resistance technique, the epidural space was entered with ease. Images were taken in the AP and contralateral oblique views. The stylette was removed from the needle and the needle was aspirated, which was negative for heme and CSF. After that, 1 ml of Omnipaque contrast dye was injected into the needle under live fluoroscopy which showed appropriate epidural spread without intravascular or intrathecal uptake. Then after another negative aspirate, 40 mg of methylprednisolone mixed with 4 mL of preservative-free normal saline was injected via the Tuohy needle. The needle was then removed and a bandage was applied. The patient tolerated the procedure well and was transferred back to the discharge area. The patient was monitored for 15 minutes and vital signs were stable. The patient was discharged home in stable condition with a recycle driver. [facility] Work Phone: 07-08-2023 History of Present illness Narrative Images from the original note were not included. Subjective Patient ID: Isabelle Sheldon is a 48 y.o. female who presents for Neck Pain. HPI Patient here today to discuss her low back and neck pain. She has a previous two-level ACDF with Dr. Zamarripa at [facility] in the past. She is been having neck and radiating right arm pain down her hand along with weakness and numbness. She underwent new cervical MRI at [facility] which did show a new central disc herniation at C3-4 above her fusion. She went to consultation with Dr. Zamarripa who suggested her to follow-up and have cervical epidural steroid injection completed and to do additional physical therapy before she move forward with any surgical option at this time. She also wanted to discuss her axial back pain. She was denied the mainstay implant this year by her insurance. She has gone through epidural steroid injections, medial branch blocks, lumbar radiofrequency ablation however she still suffers with deep axial back pain that limits her ability to sit or to lumbar flex or lift anything. She describes as a deep gnawing ache in her back that does not radiate down into her lower extremities. Her most recent MRI was within the last year. She was very disappointed when the Mainstay device was not approved for her. She is wanting to know if there are any other options and wanted to go over her MRI today. She has done an extensive amount of physical therapy on her low back including chiropractic. She does do exercises on her back on a daily basis sometimes twice a day in order to get through the day. She has been using dhdy-rsv-ndxnrts medications on a as needed basis including anti-inflammatories and Tylenol. Review of Systems Constitutional: Negative. HENT: Negative. Eyes: Negative. Respiratory: Negative. Cardiovascular: Negative. Gastrointestinal: Negative. Endocrine: Negative. Genitourinary: Negative. Musculoskeletal: Positive for back pain, neck pain and neck stiffness. Skin: Negative. Allergic/Immunologic: Negative. Neurological: Positive for numbness and headaches. Hematological: Negative. Psychiatric/Behavioral: Negative. Objective Physical Exam Vitals and nursing note reviewed. Constitutional: Appearance: Normal appearance. HENT: Head: Normocephalic and atraumatic. Right Ear: Ear canal and external ear normal. Left Ear: Ear canal and external ear normal. Nose: Nose normal. Mouth/Throat: Mouth: Mucous membranes are moist. Pharynx: Oropharynx is clear. Eyes: Conjunctiva/sclera: Conjunctivae normal. Pupils: Pupils are equal, round, and reactive to light. Cardiovascular: Rate and Rhythm: Normal rate. Pulmonary: Effort: Pulmonary effort is normal. No respiratory distress. Musculoskeletal: Cervical back: Neck supple. Tenderness present. Pain with movement present. Decreased range of motion. Thoracic back: No spasms or tenderness. Normal range of motion. Lumbar back: Tenderness present. Decreased range of motion. Negative right straight leg raise test and negative left straight leg raise test. Back: Comments: Patient has decreased range of motion in flexion causing pain. SI provocation negative bilaterally. Prone instability test positive Skin: General: Skin is warm and dry. Neurological: Mental Status: She is alert and oriented to person, place, and time. Sensory: Sensation is intact. Motor: Motor function is intact. Coordination: Coordination is intact. Gait: Gait is intact. Deep Tendon Reflexes: Reflex Scores: Bicep reflexes are 2+ on the right side and 2+ on the left side. Brachioradialis reflexes are 2+ on the right side and 2+ on the left side. Comments: Enriqueta sign negative bilaterally Psychiatric: Mood and Affect: Mood normal. Thought Content: Thought content normal. Assessment/Plan Problem List Items Addressed This Visit None Visit Diagnoses Codes Cervical disc herniation - Primary M50.20 Cervical radiculopathy M54.12 I nice discussion with the patient today our plan will be as follows. Radiology: I went over the patient's lumbar MRI with her again today. She does suffer with degenerative disc disease at the L4-5 level. There is subtle Modic endplate changes seen at L4 and L5. She has spondylosis at L4-5 and L5-S1. 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 Physically: Patient to Continue to work on lumbar and multifidus strengthening. Psychologically: SHEY is in the chart for scs or pns in the future. Medication: no changes Duration: > 1 years Intervention: Patient with previous history of ACDF with Dr. Zamarripa at [facility]. She brought in her new MRI today which does show a new central disc herniation at C3-4. Her surgeon did recommend her to undergo cervical epidural steroid injection as she is having neck and right arm pain. I will get her set up for C6-7 epidural steroid injection under fluoroscopic guidance. Risks, benefit, and alternatives of the procedure were discussed with the patient. Oswestry score has been compelted and recorded. Given the patient's chronic axial back pain that is worse with sitting and lumbar flexion. She has failed conservative physical therapy along with chiropractic and massotherapy. She has undergone epidural steroid injections as well as medial branch blocks. She has been on urog-mmg-hvhoeze anti-inflammatories and Tylenol for greater than 1 year. Her pain continues to be debilitating for her. Given her pathology seen on her last MRI I do think it is important to move forward with L4-L5 Intracept procedure. Risks, benefit, and alternatives of the procedure were discussed with the patient. Oswestry score has been compelted and recorded. Pastor Lewis MD 07/08/23 4:14 PM documented in this encounter [facility] Work Phone: 05-30-2023 Attending History and physical note H&P reviewed. The patient was examined and there are no changes to the H&P. Source Note - Nasima Kline, EDUCATION TRAINER-ARCHITECTURAL DESIGNER - 05/20/2023 10:30 AM EST Subjective Patient ID: Isabelle Sheldon is a 48 y.o. female who presents for Follow-up (Post LMBB). With the patient's permission a telehealth visit was conducted utilizing both audio and video telecommunication. Involved in care was the patient, provider and territory sales manager medical. [id number] female with degenerative disc disease, muscle atrophy, lumbago with sciatica of the right side and chronic pain syndrome. She presents to follow-up after her bilateral L4/5, L5/S1 LMBB with Dr. Lewis on 05/09/2023. She reports approximately 100% decrease in pain for 3-4 hours post-procedure. She reports her back pain was gone and all she felt was some weakness in her legs. Since our last visit she has also started PT. She is eager to proceed with RFA. Review of Systems Unless noted in the HPI all other systems have been reviewed and are negative for complaint Objective Physical Exam Telehealth Visit SKIN TAG (BENIGN FIBROEPITHELIAL POLYP). General- No acute distress, well appearing and well nourished. Eyes Conjunctiva and lids: No erythema, swelling or discharge Pulmonary - Respiratory effort: Normal respiration. Neurologic - Coordination: Normal gait Psychiatric - Orientation to person, place, and time: Normal. Mood and affect: Normal. Assessment/Plan Problem List Items Addressed This Visit Lumbosacral spondylosis without myelopathy - Primary TREATMENT PLAN: I had a nice discussion with the patient today and our plan will be as follows: Radiology: No new imaging to review at this time. Physically: Encouraged patient to continue with increased physical activity as able. Psychologically: No acute psychological needs at this time. Medication: Nothing at this time. Duration: Chronic/Ongoing Intervention: Patient is s/p bilateral L4/5, L5/S1 LMBB with Dr. Lewis on 05/09/2023. She reports 100% improvement in pain for 3-4 hours post-procedure. She is eager to proceed with RFA. [facility] Work Phone: 05-30-2023 History and physical note H&P reviewed. The patient was examined and there are no changes to the H&P. Source Note - DOMINICK Green - 05/20/2023 10:30 AM EST Subjective Patient ID: Isabelle Sheldon is a 48 y.o. female who presents for Follow-up (Post LMBB). With the patient's permission a telehealth visit was conducted utilizing both audio and video telecommunication. Involved in care was the patient, provider and territory sales manager medical. [id number] female with degenerative disc disease, muscle atrophy, lumbago with sciatica of the right side and chronic pain syndrome. She presents to follow-up after her bilateral L4/5, L5/S1 LMBB with Dr. Lewis on 05/09/2023. She reports approximately 100% decrease in pain for 3-4 hours post-procedure. She reports her back pain was gone and all she felt was some weakness in her legs. Since our last visit she has also started PT. She is eager to proceed with RFA. Review of Systems Unless noted in the HPI all other systems have been reviewed and are negative for complaint Objective Physical Exam Telehealth Visit SKIN TAG (BENIGN FIBROEPITHELIAL POLYP). General- No acute distress, well appearing and well nourished. Eyes Conjunctiva and lids: No erythema, swelling or discharge Pulmonary - Respiratory effort: Normal respiration. Neurologic - Coordination: Normal gait Psychiatric - Orientation to person, place, and time: Normal. Mood and affect: Normal. Assessment/Plan Problem List Items Addressed This Visit Lumbosacral spondylosis without myelopathy - Primary TREATMENT PLAN: I had a nice discussion with the patient today and our plan will be as follows: Radiology: No new imaging to review at this time. Physically: Encouraged patient to continue with increased physical activity as able. Psychologically: No acute psychological needs at this time. Medication: Nothing at this time. Duration: Chronic/Ongoing Intervention: Patient is s/p bilateral L4/5, L5/S1 LMBB with Dr. Lewis on 05/09/2023. She reports 100% improvement in pain for 3-4 hours post-procedure. She is eager to proceed with RFA. documented in this encounter [facility] Work Phone: 05-30-2023 Miscellaneous Notes Preprocedure diagnosis: Lumbar spondylosis Postprocedure diagnosis lumbar spondylosis Procedure performed: Bilateral L4-5 and L5-S1 radiofrequency ablation under fluoroscopic guidance Physician: Pastor Lewis MD Anesthesia: Conscious sedation Complications: none Blood loss: none Clinical note: This is a very pleasant 48-year-old female who suffers with neck low back pain here meeting all medical criteria for above-mentioned procedure. Procedure: The patient was identified in the preoperative area. The procedure was discussed in detail including its risks, benefits, and alternatives. Signed consent was obtained and the patient agreed to proceed. The patient was brought to the procedure room and placed in the prone position onto the fluoroscopy table. The lumbosacral area was prepped and draped in the usual sterile fashion using Chloroprep and a fenestrated drape. Fluoroscopy was used to identify the location of the right side L4, and DRL5 medial branch nerves at the junctions of the superior articular process and the transverse processes of L4/5, and the sacral ala respectively. Skin anesthesia was achieved using 10 ml of Lidocaine 2% over the injection sites. A 20 gauge, 100mm (10mm active tip) curved RF needle was slowly inserted at each level using AP, lateral and oblique fluoroscopic imaging. Negative aspiration for blood or CSF was confirmed. Sensory stimulation at 50Hz below 0.7V was achieved at every level. Motor stimulation at 2Hz up to 2.0V did not cause any radicular symptoms at any level. The levels were anesthetized with 5 ml of 0.5% bupivacaine with 40 mg of methylprednisolone injected in divided doses. Radiofrequency lesioning was performed for 90 seconds at 90 degrees x2. The needles were removed and bleeding was nil. The identical procedure was then performed on the left side targeting the left L4 medial branch nerve and dorsal rami of L5. Isabelle was taken to the Post-block Recovery Area for further observation. The procedure was completed without complications and was tolerated well. The patient was monitored after the procedure. The patient (or responsible democrat) was given post-procedure and discharge instructions to follow at home. The patient was discharged in stable condition. A follow up appointment was made. Stimulation Results: Left L4 = Sensory positive @ 0.3, Motor negative @ 2.0, Impedence= 115 L5 = Sensory positive @ 0.4, Motor negative @ 2.0, Impedence= 137 Right L4 = Sensory positive @ 0.4, Motor negative @ 2.0, Impedence= 200 L5 = Sensory positive @ 0.5, Motor negative @ 2.0, Impedence= 197 0940 pt resting, breathing regular and nonlabored. Denies pain. Pt tolerating water without difficulty. documented in this encounter [facility] Work Phone: 05-30-2023 Note Formatting of this n ote might be different from the original. Preprocedure diagnosis: Lumbar spondylosis Postprocedure diagnosis lumbar spondylosis Procedure performed: Bilateral L4-5 and L5-S1 radiofrequency ablation under fluoroscopic guidance Physician: Pastor Lewis MD Anesthesia: Conscious sedation Complications: none Blood loss: none Clinical note: This is a very pleasant 48-year-old female who suffers with neck low back pain here meeting all medical criteria for above-mentioned procedure. Procedure: The patient was identified in the preoperative area. The procedure was discussed in detail including its risks, benefits, and alternatives. Signed consent was obtained and the patient agreed to proceed. The patient was brought to the procedure room and placed in the prone position onto the fluoroscopy table. The lumbosacral area was prepped and draped in the usual sterile fashion using Chloroprep and a fenestrated drape. Fluoroscopy was used to identify the location of the right side L4, and DRL5 medial branch nerves at the junctions of the superior articular process and the transverse processes of L4/5, and the sacral ala respectively. Skin anesthesia was achieved using 10 ml of Lidocaine 2% over the injection sites. A 20 gauge, 100mm (10mm active tip) curved RF needle was slowly inserted at each level using AP, lateral and oblique fluoroscopic imaging. Negative aspiration for blood or CSF was confirmed. Sensory stimulation at 50Hz below 0.7V was achieved at every level. Motor stimulation at 2Hz up to 2.0V did not cause any radicular symptoms at any level. The levels were anesthetized with 5 ml of 0.5% bupivacaine with 40 mg of methylprednisolone injected in divided doses. Radiofrequency lesioning was performed for 90 seconds at 90 degrees x2. The needles were removed and bleeding was nil. The identical procedure was then performed on the left side targeting the left L4 medial branch nerve and dorsal rami of L5. Isabelle was taken to the Post-block Recovery Area for further observation. The procedure was completed without complications and was tolerated well. The patient was monitored after the procedure. The patient (or responsible democrat) was given post-procedure and discharge instructions to follow at home. The patient was discharged in stable condition. A follow up appointment was made. Stimulation Results: Left L4 = Sensory positive @ 0.3, Motor negative @ 2.0, Impedence= 115 L5 = Sensory positive @ 0.4, Motor negative @ 2.0, Impedence= 137 Right L4 = Sensory positive @ 0.4, Motor negative @ 2.0, Impedence= 200 L5 = Sensory positive @ 0.5, Motor negative @ 2.0, Impedence= 197 [facility] Work Phone: 05-30-2023 Note Formatting of this n ote might be different from the original. 0940 pt resting, breathing regular and nonlabored. Denies pain. Pt tolerating water without difficulty. [facility] 05-30-2023 Hospital Discharge instructions Pastor Lewis MD - 05/30/2023 8:48 AM EST DISCHARGE INSTRUCTIONS FOR INJECTIONS You underwent Lumbar Radiofrequency Ablation today Aftermost injections, it is recommended that you relax and limit your activity for the remainder of the day unless you have been told otherwise by your pain physician. You should not drive a car, operate machinery, or make important legal decisions unless otherwise directed by your pain physician. You may resume your normal activity, including exercise, tomorrow. Keep a written pain diary of how much pain relief you experienced following the injection procedure and the length of time of pain relief you experienced pain relief. Following diagnostic injections like medial branch nerve blocks, sacroiliac joint blocks, stellate ganglion injections and other blocks, it is very important you record the specific amount of pain relief you experienced immediately after the injectionand how long it lasted. Your doctor will ask you for this information at your follow up visit. For all injections, please keep the injection site dry and inspect the site for a couple of days. You may remove the Band-Aid the day of the injection at any time. Some discomfort, bruising or slight swelling may occur at the injection site. This is not abnormal if it occurs. If needed you may: -Take over the counter medication such as Tylenol or Motrin. -Apply an ice pack for 30 minutes, 2 to 3 times a day for the first 24 hours. You may shower today; no soaking baths, hot tubs, whirlpools or swimming pools for two days. If you are given steroids in your injection, it may take 3-5 days for the steroid medication to take effect. You may notice a worsening of your symptoms for 1-2 days after the injection. This is not abnormal. You may use acetaminophen, ibuprofen, or prescription medication that your doctor may have prescribed for you if you need to do so. A few common side effects of steroids include facial flushing, sweating, restlessness, irritability,difficulty sleeping, increase in blood sugar, and increased blood pressure. If you have diabetes, please monitor your blood sugar at least once a day for at least 5 days. If you have poorly controlled high blood pressure, monitoryour blood pressure for at least 2 days and contact your primary care physician if these numbers are unusually high for you. If you take aspirin or non-steroidal anti-inflammatory drugs (examples are Motrin, Advil, ibuprofen, Naprosyn, Voltaren, Relafen, etc.) you may restart these this evening, but stop taking it 3 days before your next appointment, unless instructed otherwiseby your physician. You do not need to discontinue rjj-dxrrbqf-qfoholglue pain medications prior to an injection (examples: Celebrex, tramadol, hydrocodone and acetaminophen). If you take a blood thinning medication (Coumadin, Lovenox, Fragmin,Ticlid, Plavix, Pradaxa, etc.), please discuss this with your primary care physician/perl developer and your pain physician. These medications MUST be discontinued before you can have an injection safely, without the risk of uncontrolled bleeding. If these medications are not discontinued for an appropriate period of time, you will not be able to receivean injection. If you are taking Coumadin, please have your INR checked the morning of your procedure and bringthe result to your appointment unless otherwise instructed. If your INR is over 1.2, your injection may need to be rescheduled to avoid uncontrolled bleeding from the needle placement. Call [facility] at [phone] between 8am-4pm Friday - Friday if you are experiencing the following: If you received an epidural or spinal injection: -Headache that doesnot go away with medicine, is worse when sitting or standing up, and is greatly relieved upon lying down. -Severe pain worse than or different than your baseline pain. -Chills or fever (101 F or greater). -Drainage or signs of infection at the injection site Go directly to the Emergency Department if you are experiencing the following and received an epidural or spinal injection: -Abrupt weakness or progressive weakness in your legs that starts after you leave the clinic. -Abrupt severe or worsening numbness in your legs. -Inability to urinate after the injection or loss of bowel or bladder control without the urge to defecate or urinate. If you have a clinical question that cannot wait until your next appointment, please call [phone] between 8am-4pm Friday - Friday or send a [employer] message. We do our best to return all non-emergency messages within 24 hours, Friday - Friday. A nurse or physician will return your message. If you need to cancel an appointment, please call the scheduling staff at [phone] during normal business hours or leave a message at least 24 hours in advance. If you are going to be sedated for your next procedure, you MUST have responsible adult who can legally drive accompany you home. You cannot eat or drink for eight hours prior to the planned procedure if you are going to receive sedation. You may take your non-blood thinning medications with a small sip of water. documented in this encounter [facility] Work Phone: 05-20-2023 History of Present illness Narrative Subjective Patient ID: Isabelle Sheldon is a 48 y.o. female who presents for Follow-up (Post LMBB). With the patient's permission a telehealth visit was conducted utilizing both audio and video telecommunication. Involved in care was the patient, provider and territory sales manager medical. [id number] female with degenerative disc disease, muscle atrophy, lumbago with sciatica of the right side and chronic pain syndrome. She presents to follow-up after her bilateral L4/5, L5/S1 LMBB with Dr. Lewis on 05/09/2023. She reports approximately 100% decrease in pain for 3-4 hours post-procedure. She reports her back pain was gone and all she felt was some weakness in her legs. Since our last visit she has also started PT. She is eager to proceed with RFA. Review of Systems Unless noted in the HPI all other systems have been reviewed and are negative for complaint Objective Physical Exam Telehealth Visit SKIN TAG (BENIGN FIBROEPITHELIAL POLYP). General- No acute distress, well appearing and well nourished. Eyes Conjunctiva and lids: No erythema, swelling or discharge Pulmonary - Respiratory effort: Normal respiration. Neurologic - Coordination: Normal gait Psychiatric - Orientation to person, place, and time: Normal. Mood and affect: Normal. Assessment/Plan Problem List Items Addressed This Visit Lumbosacral spondylosis without myelopathy - Primary TREATMENT PLAN: I had a nice discussion with the patient today and our plan will be as follows: Radiology: No new imaging to review at this time. Physically: Encouraged patient to continue with increased physical activity as able. Psychologically: No acute psychological needs at this time. Medication: Nothing at this time. Duration: Chronic/Ongoing Intervention: Patient is s/p bilateral L4/5, L5/S1 LMBB with Dr. Lewis on 05/09/2023. She reports 100% improvement in pain for 3-4 hours post-procedure. She is eager to proceed with RFA. documented in this encounter [facility] Work Phone: 05-09-2023 Miscellaneous Notes Band aid dry and intact. No neuro deficits. Ready for discharge. Preprocedure diagnosis: Lumbar spondylosis Postprocedure diagnosis lumbar spondylosis Procedure performed: Bilateral L4-5 and L5-S1 medial branch blocks under fluoroscopic guidance Physician: Pastor Lewis MD Anesthesia: Local Complications: none Blood loss: none Clinical note: This is a very pleasant 48-year-old female who suffers with low back pain here meeting all medical criteria for above-mentioned procedure. Procedure: The patient was identified in the preoperative area. The procedure was discussed in detail including its risks, benefits, and alternatives. Signed consent was obtained and the patient agreed to proceed. The patient was brought to the procedure room and placed in the prone position onto the fluoroscopy table. The lumbosacral area was prepped and draped in the usual sterile fashion using Chloroprep and a fenestrated drape. The fluoroscope was brought into the field and a PA image was obtained to identify the L4 and L5 vertebral bodies. The skin overlying the proposed needle entry site at the level of L4/5 and sacral Ala on the left and right were marked. No skin infiltration was performed/ The skin and subcutaneous tissues overlying the proposed needle entry sites were anesthetized with 10 ml of 2% lidocaine. A 22 spinal needle was placed through the skin and advanced coaxially towards the base of the transverse process where it joins the superior articular process until the needle tip touched bone. Correct final needle position was confirmed with AP fluoroscopic imaging. 2 ml of 0.5% bupivacaine was injected in divided doses following negative aspiration for heme, CSF, or air. After completion of the injection, the needles were removed. The injection sites were cleaned and dried. The patient was transferred to the recovery area and discharged in stable condition per protocol. The procedure was completed without complications and was tolerated well. The patient was monitored after the procedure. The patient (or responsible democrat) was given post-procedure and discharge instructions to follow at home. The patient was discharged in stable condition. A follow up appointment was made., documented in this encounter [facility] Work Phone: 05-09-2023 Note Formatting of this n ote might be different from the original. Band aid dry and intact. No neuro deficits. Ready for discharge. [facility] 05-09-2023 Note Formatting of this n ote might be different from the original. Band aid dry and intact. No neuro deficits. Ready for discharge. [facility] 05-09-2023 Attending History and physical note H&P reviewed. The patient was examined and there are no changes to the H&P. Source Note - Nasima Kline, LION-ARCHITECTURAL DESIGNER - 04/22/2023 12:30 PM EST Subjective Patient ID: Isabelle Sheldon is a 48 y.o. female who presents for follow-up Bilateral L4/5, L5/S1 LMBB #1. HPI 47-year-old female with degenerative disc disease, muscle atrophy, lumbago with sciatica of the right side and chronic pain syndrome. She presents to follow-up after her bilateral L4/5, L5/S1 LMBB with Dr. Lewis on 04/11/2023. She reports at least 90% decrease in pain for 1-2 days after her procedure. She reports she had better mobility during this time and was able to actually lift her legs which she normally cannot do. She is eager to proceed with the second diagnostic MBB in anticipation of RFA. Review of Systems Unless noted in the HPI all other systems have been reviewed and are negative for complaint Objective Physical Exam Telehealth visit; no PE performed. Assessment/Plan Problem List Items Addressed This Visit None Visit Diagnoses Lumbosacral spondylosis without myelopathy - Primary Relevant Orders Medial Nerve Branch Block TREATMENT PLAN: I had a nice discussion with the patient today and our plan will be as follows: Radiology: No new imaging to review at this time. Physically: Encouraged patient to continue with increased physical activity as able. Psychologically: No acute psychological needs at this time. Medication: Nothing at this time. Duration: Chronic/Ongoing Intervention: Patient is s/p bilateral L4/5, L5/S1 LMBB with Dr. Lewis on 04/11/2023. She reports at least 90% decrease in pain for 1-2 days after her procedure. She is eager to proceed with the second diagnostic MBB in anticipation of RFA. [facility] Work Phone: 05-09-2023 History and physical note H&P reviewed. The patient was examined and there are no changes to the H&P. Source Note - DOMINICK Green - 04/22/2023 12:30 PM EST Subjective Patient ID: Isabelle Sheldon is a 48 y.o. female who presents for follow-up Bilateral L4/5, L5/S1 LMBB #1. HPI 47-year-old female with degenerative disc disease, muscle atrophy, lumbago with sciatica of the right side and chronic pain syndrome. She presents to follow-up after her bilateral L4/5, L5/S1 LMBB with Dr. Lewis on 04/11/2023. She reports at least 90% decrease in pain for 1-2 days after her procedure. She reports she had better mobility during this time and was able to actually lift her legs which she normally cannot do. She is eager to proceed with the second diagnostic MBB in anticipation of RFA. Review of Systems Unless noted in the HPI all other systems have been reviewed and are negative for complaint Objective Physical Exam Telehealth visit; no PE performed. Assessment/Plan Problem List Items Addressed This Visit None Visit Diagnoses Lumbosacral spondylosis without myelopathy - Primary Relevant Orders Medial Nerve Branch Block TREATMENT PLAN: I had a nice discussion with the patient today and our plan will be as follows: Radiology: No new imaging to review at this time. Physically: Encouraged patient to continue with increased physical activity as able. Psychologically: No acute psychological needs at this time. Medication: Nothing at this time. Duration: Chronic/Ongoing Intervention: Patient is s/p bilateral L4/5, L5/S1 LMBB with Dr. Lewis on 04/11/2023. She reports at least 90% decrease in pain for 1-2 days after her procedure. She is eager to proceed with the second diagnostic MBB in anticipation of RFA. documented in this encounter [facility] Work Phone: 05-09-2023 Hospital Discharge instructions Pastor Lewis MD - 05/09/2023 1:15 PM EST DISCHARGEINSTRUCTIONS FOR INJECTIONS You underwent Lumbar Medial Branch Blocks today Aftermost injections, it is recommended that you relax and limit your activity for the remainder of the day unless you have been told otherwise by your pain physician. You should not drive a car, operate machinery, or make important legal decisions unless otherwise directed by your pain physician. You may resume your normal activity, including exercise, tomorrow. Keep a written pain diary of how much pain relief you experienced following the injection procedure and the length of time of pain relief you experienced pain relief. Following diagnostic injections like medial branch nerve blocks, sacroiliac joint blocks, stellate ganglion injections and other blocks, it is very important you record the specific amount of pain relief you experienced immediately after the injectionand how long it lasted. Your doctor will ask you for this information at your follow up visit. For all injections, please keep the injection site dry and inspect the site for a couple of days. You may remove the Band-Aid the day of the injection at any time. Some discomfort, bruising or slight swelling may occur at the injection site. This is not abnormal if it occurs. If needed you may: -Take over the counter medication such as Tylenol or Motrin. -Apply an ice pack for 30 minutes, 2 to 3 times a day for the first 24 hours. You may shower today; no soaking baths, hot tubs, whirlpools or swimming pools for two days. If you are given steroids in your injection, it may take 3-5 days for the steroid medication to take effect. You may notice a worsening of your symptoms for 1-2 days after the injection. This is not abnormal. You may use acetaminophen, ibuprofen, or prescription medication that your doctor may have prescribed for you if you need to do so. A few common side effects of steroids include facial flushing, sweating, restlessness, irritability,difficulty sleeping, increase in blood sugar, and increased blood pressure. If you have diabetes, please monitor your blood sugar at least once a day for at least 5 days. If you have poorly controlled high blood pressure, monitoryour blood pressure for at least 2 days and contact your primary care physician if these numbers are unusually high for you. If you take aspirin or non-steroidal anti-inflammatory drugs (examples are Motrin, Advil, ibuprofen, Naprosyn, Voltaren, Relafen, etc.) you may restart these this evening, but stop taking it 3 days before your next appointment, unless instructed otherwiseby your physician. You do not need to discontinue jvh-ocmlmkz-fcecdyttkn pain medications prior to an injection (examples: Celebrex, tramadol, hydrocodone and acetaminophen). If you take a blood thinning medication (Coumadin, Lovenox, Fragmin,Ticlid, Plavix, Pradaxa, etc.), please discuss this with your primary care physician/perl developer and your pain physician. These medications MUST be discontinued before you can have an injection safely, without the risk of uncontrolled bleeding. If these medications are not discontinued for an appropriate period of time, you will not be able to receivean injection. If you are taking Coumadin, please have your INR checked the morning of your procedure and bringthe result to your appointment unless otherwise instructed. If your INR is over 1.2, your injection may need to be rescheduled to avoid uncontrolled bleeding from the needle placement. Call [facility] at [phone] between 8am-4pm Friday - Friday if you are experiencing the following: If you received an epidural or spinal injection: -Headache that doesnot go away with medicine, is worse when sitting or standing up, and is greatly relieved upon lying down. -Severe pain worse than or different than your baseline pain. -Chills or fever (101 F or greater). -Drainage or signs of infection at the injection site Go directly to the Emergency Department if you are experiencing the following and received an epidural or spinal injection: -Abrupt weakness or progressive weakness in your legs that starts after you leave the clinic. -Abrupt severe or worsening numbness in your legs. -Inability to urinate after the injection or loss of bowel or bladder control without the urge to defecate or urinate. If you have a clinical question that cannot wait until your next appointment, please call [phone] between 8am-4pm Friday - Friday or send a [employer] message. We do our best to return all non-emergency messages within 24 hours, Friday - Friday. A nurse or physician will return your message. If you need to cancel an appointment, please call the scheduling staff at [phone] during normal business hours or leave a message at least 24 hours in advance. If you are going to be sedated for your next procedure, you MUST have responsible adult who can legally drive accompany you home. You cannot eat or drink for eight hours prior to the planned procedure if you are going to receive sedation. You may take your non-blood thinning medications with a small sip of water. documented in this encounter [facility] Work Phone: 05-09-2023 Note Formatting of this n ote might be different from the original. Preprocedure diagnosis: Lumbar spondylosis Postprocedure diagnosis lumbar spondylosis Procedure performed: Bilateral L4-5 and L5-S1 medial branch blocks under fluoroscopic guidance Physician: Pastor Lewis MD Anesthesia: Local Complications: none Blood loss: none Clinical note: This is a very pleasant 48-year-old female who suffers with low back pain here meeting all medical criteria for above-mentioned procedure. Procedure: The patient was identified in the preoperative area. The procedure was discussed in detail including its risks, benefits, and alternatives. Signed consent was obtained and the patient agreed to proceed. The patient was brought to the procedure room and placed in the prone position onto the fluoroscopy table. The lumbosacral area was prepped and draped in the usual sterile fashion using Chloroprep and a fenestrated drape. The fluoroscope was brought into the field and a PA image was obtained to identify the L4 and L5 vertebral bodies. The skin overlying the proposed needle entry site at the level of L4/5 and sacral Ala on the left and right were marked. No skin infiltration was performed/ The skin and subcutaneous tissues overlying the proposed needle entry sites were anesthetized with 10 ml of 2% lidocaine. A 22 spinal needle was placed through the skin and advanced coaxially towards the base of the transverse process where it joins the superior articular process until the needle tip touched bone. Correct final needle position was confirmed with AP fluoroscopic imaging. 2 ml of 0.5% bupivacaine was injected in divided doses following negative aspiration for heme, CSF, or air. After completion of the injection, the needles were removed. The injection sites were cleaned and dried. The patient was transferred to the recovery area and discharged in stable condition per protocol. The procedure was completed without complications and was tolerated well. The patient was monitored after the procedure. The patient (or responsible democrat) was given post-procedure and discharge instructions to follow at home. The patient was discharged in stable condition. A follow up appointment was made., [facility] Work Phone: 05-09-2023 Note Formatting of this n ote might be different from the original. Preprocedure diagnosis: Lumbar spondylosis Postprocedure diagnosis lumbar spondylosis Procedure performed: Bilateral L4-5 and L5-S1 medial branch blocks under fluoroscopic guidance Physician: Pastor Lewis MD Anesthesia: Local Complications: none Blood loss: none Clinical note: This is a very pleasant 48-year-old female who suffers with low back pain here meeting all medical criteria for above-mentioned procedure. Procedure: The patient was identified in the preoperative area. The procedure was discussed in detail including its risks, benefits, and alternatives. Signed consent was obtained and the patient agreed to proceed. The patient was brought to the procedure room and placed in the prone position onto the fluoroscopy table. The lumbosacral area was prepped and draped in the usual sterile fashion using Chloroprep and a fenestrated drape. The fluoroscope was brought into the field and a PA image was obtained to identify the L4 and L5 vertebral bodies. The skin overlying the proposed needle entry site at the level of L4/5 and sacral Ala on the left and right were marked. No skin infiltration was performed/ The skin and subcutaneous tissues overlying the proposed needle entry sites were anesthetized with 10 ml of 2% lidocaine. A 22 spinal needle was placed through the skin and advanced coaxially towards the base of the transverse process where it joins the superior articular process until the needle tip touched bone. Correct final needle position was confirmed with AP fluoroscopic imaging. 2 ml of 0.5% bupivacaine was injected in divided doses following negative aspiration for heme, CSF, or air. After completion of the injection, the needles were removed. The injection sites were cleaned and dried. The patient was transferred to the recovery area and discharged in stable condition per protocol. The procedure was completed without complications and was tolerated well. The patient was monitored after the procedure. The patient (or responsible democrat) was given post-procedure and discharge instructions to follow at home. The patient was discharged in stable condition. A follow up appointment was made., [facility] Work Phone: 04-22-2023 History of Present illness Narrative Subjective Patient ID: Isabelle Sheldon is a 48 y.o. female who presents for follow-up Bilateral L4/5, L5/S1 LMBB #1. HPI 47-year-old female with degenerative disc disease, muscle atrophy, lumbago with sciatica of the right side and chronic pain syndrome. She presents to follow-up after her bilateral L4/5, L5/S1 LMBB with Dr. Lewis on 04/11/2023. She reports at least 90% decrease in pain for 1-2 days after her procedure. She reports she had better mobility during this time and was able to actually lift her legs which she normally cannot do. She is eager to proceed with the second diagnostic MBB in anticipation of RFA. Review of Systems Unless noted in the HPI all other systems have been reviewed and are negative for complaint Objective Physical Exam Telehealth visit; no PE performed. Assessment/Plan Problem List Items Addressed This Visit None Visit Diagnoses Lumbosacral spondylosis without myelopathy - Primary Relevant Orders Medial Nerve Branch Block TREATMENT PLAN: I had a nice discussion with the patient today and our plan will be as follows: Radiology: No new imaging to review at this time. Physically: Encouraged patient to continue with increased physical activity as able. Psychologically: No acute psychological needs at this time. Medication: Nothing at this time. Duration: Chronic/Ongoing Intervention: Patient is s/p bilateral L4/5, L5/S1 LMBB with Dr. Lewis on 04/11/2023. She reports at least 90% decrease in pain for 1-2 days after her procedure. She is eager to proceed with the second diagnostic MBB in anticipation of RFA. documented in this encounter [facility] Work Phone: 04-11-2023 Attending History and physical note H&P reviewed. The patient was examined and there are no changes to the H&P. Source Note - Pastor Lewis MD - 03/27/2023 3:15 PM EDT Subjective Patient ID: Isabelle Almaguer is a 47 y.o. female who presents for Back Pain. Back Pain patient here for telehealth visit via secure web portal with audio and visual. Patient had a new lumbar MRI completed and is here today to go over it. The majority of her pain is located in her low back and she is constantly changing positions all day long. The ache will then radiate into her buttocks and hips and then dissipate. She reports no numbness, tingling, weakness in the lower extremities at this time. One present position for too long will increase the pain. She did restart some home physical therapy exercises that she had completed several years ago and she does these every morning to get up and go and they do feel good for her. She questions whether or not returning back to physical therapy would be helpful for her. She is open for all options. She is hopeful that the mainstay reactivate device will get approved for her. Review of Systems Constitutional: Negative. HENT: Negative. Eyes: Negative. Respiratory: Negative. Cardiovascular: Negative. Gastrointestinal: Negative. Endocrine: Negative. Genitourinary: Negative. Musculoskeletal: Positive for back pain and myalgias. Skin: Negative. Allergic/Immunologic: Negative. Neurological: Negative. Hematological: Negative. Psychiatric/Behavioral: Negative. Objective Physical Exam Vitals and nursing note reviewed. Constitutional: Appearance: Normal appearance. HENT: Head: Normocephalic and atraumatic. Right Ear: Ear canal and external ear normal. Left Ear: Ear canal and external ear normal. Nose: Nose normal. Mouth/Throat: Mouth: Mucous membranes are moist. Pharynx: Oropharynx is clear. Eyes: Conjunctiva/sclera: Conjunctivae normal. Pupils: Pupils are equal, round, and reactive to light. Cardiovascular: Rate and Rhythm: Normal rate. Pulmonary: Effort: Pulmonary effort is normal. No respiratory distress. Musculoskeletal: Cervical back: Normal range of motion and neck supple. Lumbar back: Tenderness present. Normal range of motion. Skin: General: Skin is warm and dry. Neurological: Mental Status: She is alert. Psychiatric: Mood and Affect: Mood normal. Thought Content: Thought content normal. Assessment/Plan Problem List Items Addressed This Visit None Visit Diagnoses Codes Lumbosacral spondylosis without myelopathy - Primary M47.817 Relevant Orders Medial Nerve Branch Block Referral to Physical Therapy I nice discussion with the patient today our plan will be as follows. Radiology: I went over the patient's new lumbar MRI with her today. Her MRI was essentially normal except for stress reaction seen at the L4 and L5 pars interarticularis. Physically: Patient to restart physical therapy twice per week for 4 weeks. Psychologically: No issues at this time. Medication: No changes at this time. Duration: 1 year. Intervention: Continue to move forward with appeal of the lumbar implant with mainstay. However we will move forward with injecting the L4 and L5 pars and to care Alaris given that there is an acute stress reaction there which does correlate with her mechanical pain. Risks, benefit, and alternatives of the procedure were discussed with the patient. Oswestry score has been compelted and recorded. [facility] Work Phone: 04-11-2023 History and physical note H&P reviewed. The patient was examined and there are no changes to the H&P. Source Note - Pastor Lewis MD - 03/27/2023 3:15 PM EDT Subjective Patient ID: Isabelle Almaguer is a 47 y.o. female who presents for Back Pain. Back Pain patient here for telehealth visit via secure web portal with audio and visual. Patient had a new lumbar MRI completed and is here today to go over it. The majority of her pain is located in her low back and she is constantly changing positions all day long. The ache will then radiate into her buttocks and hips and then dissipate. She reports no numbness, tingling, weakness in the lower extremities at this time. One present position for too long will increase the pain. She did restart some home physical therapy exercises that she had completed several years ago and she does these every morning to get up and go and they do feel good for her. She questions whether or not returning back to physical therapy would be helpful for her. She is open for all options. She is hopeful that the mainstay reactivate device will get approved for her. Review of Systems Constitutional: Negative. HENT: Negative. Eyes: Negative. Respiratory: Negative. Cardiovascular: Negative. Gastrointestinal: Negative. Endocrine: Negative. Genitourinary: Negative. Musculoskeletal: Positive for back pain and myalgias. Skin: Negative. Allergic/Immunologic: Negative. Neurological: Negative. Hematological: Negative. Psychiatric/Behavioral: Negative. Objective Physical Exam Vitals and nursing note reviewed. Constitutional: Appearance: Normal appearance. HENT: Head: Normocephalic and atraumatic. Right Ear: Ear canal and external ear normal. Left Ear: Ear canal and external ear normal. Nose: Nose normal. Mouth/Throat: Mouth: Mucous membranes are moist. Pharynx: Oropharynx is clear. Eyes: Conjunctiva/sclera: Conjunctivae normal. Pupils: Pupils are equal, round, and reactive to light. Cardiovascular: Rate and Rhythm: Normal rate. Pulmonary: Effort: Pulmonary effort is normal. No respiratory distress. Musculoskeletal: Cervical back: Normal range of motion and neck supple. Lumbar back: Tenderness present. Normal range of motion. Skin: General: Skin is warm and dry. Neurological: Mental Status: She is alert. Psychiatric: Mood and Affect: Mood normal. Thought Content: Thought content normal. Assessment/Plan Problem List Items Addressed This Visit None Visit Diagnoses Codes Lumbosacral spondylosis without myelopathy - Primary M47.817 Relevant Orders Medial Nerve Branch Block Referral to Physical Therapy I nice discussion with the patient today our plan will be as follows. Radiology: I went over the patient's new lumbar MRI with her today. Her MRI was essentially normal except for stress reaction seen at the L4 and L5 pars interarticularis. Physically: Patient to restart physical therapy twice per week for 4 weeks. Psychologically: No issues at this time. Medication: No changes at this time. Duration: 1 year. Intervention: Continue to move forward with appeal of the lumbar implant with mainstay. However we will move forward with injecting the L4 and L5 pars and to care Alaris given that there is an acute stress reaction there which does correlate with her mechanical pain. Risks, benefit, and alternatives of the procedure were discussed with the patient. Oswestry score has been compelted and recorded. documented in this encounter [facility] Work Phone: 04-11-2023 Miscellaneous Notes Preprocedure diagnosis: Lumbar spondylosis Postprocedure diagnosis bar spondylosis Procedure performed: Bilateral L4-5 and L5/S1 medial branch blocks under fluoroscopic guidance Physician: Pastor Lewis MD Anesthesia: Local Complications: none Blood loss: none Clinical note: This is a very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 in this encounter [facility] Work Phone: [phone] note* Diagnosis Lumbosacral spondylosis without myelopathy documented in this encounter [facility] Work Phone: [phone] note* Diagnosis Spondylosis without myelopathy or radiculopathy, lumbosacral region documented in this encounter [facility] Work Phone: [phone] note* Diagnosis Radiculopathy, lumbar region Thoracic or lumbosacral neuritis or radiculitis, unspecified documented in this encounter [facility] Work Phone: [phone] note* Diagnosis Lumbosacral spondylosis without myelopathy- Primary documented in this encounter [facility] Work Phone: [phone] note* Diagnosis Lumbosacral spondylosis without myelopathy documented in this encounter [facility] Work Phone: [phone] note* Diagnosis Lumbosacral spondylosis without myelopathy- Primary documented in this encounter [facility] Work Phone: [phone] note* Diagnosis Lumbosacral spondylosis without myelopathy documented in this encounter [facility] Work Phone: [phone] note* Diagnosis Cervical disc herniation- Primary Displacement of cervical intervertebral disc without myelopathy Cervical radiculopathy Brachial neuritis or radiculitis nos Vertebrogenic low back pain DDD (degenerative disc disease), lumbar Degeneration of lumbar or lumbosacral intervertebral disc Muscle wasting and atrophy, not elsewhere classified, other site Other chronic pain documented in this encounter [facility] Work Phone: Evaluation note* Diagnosis Cervical radiculopathy Brachial neuritis or radiculitis nos documented in this encounter [facility] Work Phone: Evaluation note* Diagnosis Postlaminectomy syndrome, cervical region- Primary Vertebrogenic low back pain documented in this encounter [facility] Work Phone: History general Narrative - Reported* Type Description Date Medical History Irritable Bowel Symdrome Medical History Colitis Medical History Cervical Spine Pain Medical History Lumbar Spine Pain Surgical History Tonsilectomy Surgical History Shoulder Surgery, Arthroscopic, Right 2010 Surgical History Right Peroneus Brevis Tendon Re pair 05/14/2019 Surgical History Right Shoulder Arthr oscopy Subacromial Decompression, and Major Joint Glenohumeral Debridement 05/28/2019 Surgical History Appendectomy Surgical History Artificial Disc Plac ement, [employer] Prestige [employer], 5x14mm, one at C5C6, and one at C6C7. 05/23/2021 [facility]. [facility] Reason for referral (narrative)* Consultation (Routine) - Pending Review Specialty Diagnoses / Procedures Referred By Patricia dumont Referred To Contact Physical Therapy Diagnoses Lumbosacral spondylosis without myelopathy Pastor Lewis MD [address] [facility] [place] [address] Referral ID Status Reason Start Date Expiration Date Visits Requested Visits Authorized [id number] Pending Review Specialty Services Required 3 03/26/2024 1 1 * Procedure (Routine) - Pending Review Specialty Diagnoses / Procedures Referred By Patricia dumont Referred To Contact Diagnoses Lumbosacral spondylosis without myelopathy Procedures Medial Nerve Branch Block Pastor Lewis MD [address] [facility] [place] [address] Referral ID Status Reason Start Date Expiration Date Visits Requested Visits Authorized [id number] Pending Review Perform Procedure 3 03/26/2024 1 1 [facility] Work Phone: reason for referral (narrative)* Procedure (Routine) - Authorized Specialty Diagnoses / Procedures Referred By Contac t Referred To Contact Diagnoses Lumbosacral spondylosis without myelopathy Procedures Medial Nerve Branch Block Pastor Lewis MD [address] [facility] [address] [place] [address] Pastor Lewis MD [address] [facility] [place] [address] Referral ID Status Reason Start Date Expiration Date Visits Requested Visits Authorized [id number] Authorized Perform Procedure 3 03/26/2024 1 1 [facility] Work Phone: reason for referral (narrative)* Procedure (Routine) - Pending Review Specialty Diagnoses / Procedures Referred By Contac t Referred To Contact Diagnoses Lumbosacral spondylosis without myelopathy Procedures Medial Nerve Branch Block Nasima Kline EDUCATION TRAINER-ARCHITECTURAL DESIGNER [address] [place] [address] Referral ID Status Reason Start Date Expiration Date Visits Requested Visits Authorized [id number] Pending Review Perform Procedure 3 04/21/2024 1 1 [facility] Work Phone: reason for referral (narrative)* Procedure (Routine) - Authorized Specialty Diagnoses / Procedures Referred By Contac t Referred To Contact Diagnoses Lumbosacral spondylosis without myelopathy Procedures Medial Nerve Branch Block Nasima Kline EDUCATION TRAINER-ARCHITECTURAL DESIGNER [address] [place] [address] Pastor Lewis MD [address] [facility] [place] [address] Referral ID Status Reason Start Date Expiration Date Visits Requested Visits Authorized [id number] Authorized Perform Procedure 3 04/21/2024 1 1 [facility] Work Phone: Repzog for referral (narrative)* Procedure (Routine) - Authorized Specialty Diagnoses / Procedures Referred By Contac t Referred To Contact Diagnoses Lumbosacral spondylosis without myelopathy Procedures Radiofrequency Ablation OR DSTR NROLYTC AGNT PARVERTEB FCT SNGL LMBR/SACRAL OR DSTR NROLYTC AGNT PARVERTEB FCT ADDL LMBR/SACRAL Nasima Kline APRN-ARCHITECTURAL DESIGNER [address] [place] [address] Pastor Lewis MD [address] [place] [address] [place] [address] Referral ID Status Reason Start Date Expiration Date Visits Requested Visits Authorized [id number] Authorized Perform Procedure 3 05/26/2024 1 1 [facility] Work Phone: Reason for referral (narrative)* Procedure (Routine) - Authorized Specialty Diagnoses / Procedures Referred By Contac t Referred To Contact Diagnoses Cervical radiculopathy Procedures Epidural Steroid Injection OR NJX DX/THER SBST INTRLMNR CRV/THRC W/IMG GDN Pastor Lewis MD [address] [place] [address] [place] [address] [place] [address] [place] [address] [place] [address] Referral ID Status Reason Start Date Expiration Date Visits Requested Visits Authorized [id number] Authorized Perform Procedure 07/09/2023 07/08/2024 [address] [facility] Work Phone: reason for visit Narrativenew patient referral from [facility] Other Reason for visit Narrativeprocedure unable to submit until [facility] Other Reason for visit Narrative* Procedure (Routine) - Authorized Specialty Diagnoses / Procedures Referred By Patricia dumont Referred To Contact Diagnoses Lumbosacral spondylosis without myelopathy Procedures Medial Nerve Branch Block Pastor Lewis MD [address] [place] [address] Pastor Lewis MD [address] [place] [address] Referral ID Status Reason Start Date Expiration Date Visits Requested Visits Authorized [id number] Authorized Perform Procedure 3 03/26/2024 [address] [facility] Work Phone: reason for visit Narrative* Procedure (Routine) - Authorized Specialty Diagnoses / Procedures Referred By Patricia t Referred To Contact Diagnoses Lumbosacral spondylosis without myelopathy Procedures Medial Nerve Branch Block Nasima Kline, EDUCATION TRAINER-[facility] [address] [place] [address] Pastor Lewis MD [facility] [address] [address] Referral ID Status Reason Start Date Expiration Date Visits Requested Visits Authorized [id number] Authorized Perform Procedure 3 04/21/2024 [address] [facility] Work Phone: reason for visit Narrative* Procedure (Routine) - Authorized Specialty Diagnoses / Procedures Referred By Contac t Referred To Contact Diagnoses Lumbosacral spondylosis without myelopathy Procedures Radiofrequency Ablation OR DSTR NROLYTC AGNT PARVERTEB FCT SNGL LMBR/SACRAL OR DSTR NROLYTC AGNT PARVERTEB FCT ADDL LMBR/SACRAL ElaineMgRoman Nasima Loan, EDUCATION TRAINER-ARCHITECTURAL DESIGNER [address] [place] [address] Pastor Lewis MD [address] [place] [address] [place] [address] Referral ID Status Reason Start Date Expiration Date Visits Requested Visits Authorized [id number] Authorized Perform Procedure 3 05/26/2024 [address] [facility] Work Phone: Reason for visit Narrative* Procedure (Routine) - Authorized Specialty Diagnoses / Procedures Referred By Contac t Referred To Contact Diagnoses Cervical radiculopathy Procedures Epidural Steroid Injection OR NJX DX/THER SBST INTRLMNR CRV/THRC W/IMG GDN Pastor Lewis MD [address] [place] [address] [place] [address] Pastor Lewis MD [address] [place] [address] [address] [place] [address] Referral ID Status Reason Start Date Expiration Date Visits Requested Visits Authorized [id number] Authorized Perform Procedure 07/09/2023 07/08/2024 [address] [facility] Work Phone: Summary Purpose Family History No Family History Records FoundNo Family History Records FoundThere may be information available, but it has not been provided by the sender.No Family History Records FoundNo Family History Records FoundNo Family History Records FoundNo Family History Records Found Advance Directives No Advanced Directives Records FoundNo Advanced Directives Records FoundThere may be information available, but it has not been provided by the sender.No Advanced Directives Records FoundNo Advanced Directives Records FoundNo Advanced Directives Records FoundNo Advanced Directives Records Found Chief Complaint Chief Complaint Description Start Date neck post Anterior cervical discectomy and decompression microscopic C5-C6 C6-C7 and Artificial disc replacement Medtr[employer] Prestige LP 5 x 14 mm one at C5-C6 and one at C6-C7. on 05/23/2021 Preliminary chief co mplaint data, not yet signed by the author as of Reason for Referral Specialty Diagnoses / Procedures Referred By Contac t Referred To Contact Pastor Lewis MD [address] [place] [address] [place] [address] Referral ID Status Reason Start Date Expiration Date V isits Requested Visits Authorized [id number] Pending Review 07/25/2023 07/24/2024 1 1 Referral ID Status Reason Start Date Expiration Date V isits Requested Visits Authorized [id number] Pending Review 07/25/2023 07/24/2024 1 1 Specialty Diagnoses / Procedures Referred By Contac t Referred To Contact Diagnoses Cervical radiculopathy Procedures Epidural Steroid Injection OR NJX DX/THER SBST INTRLMNR CRV/THRC W/IMG GDN Pastor Lewis MD [address] [place] [address] [place] [address] Pastor Leiws MD [address] [place] [address] Referral ID Status Reason Start Date Expiration Date Visits Requested Visits Authorized [id number] Authorized Perform Procedure 07/09/2023 07/08/2024 1 1 Specialty Diagnoses / Procedures Referred By Contac t Referred To Contact Radiology Diagnoses Radiculopathy, lumbar region Procedures MR lumbar spine wo IV contrast Nasima Kline, EDUCATION TRAINER-ARCHITECTURAL DESIGNER [address] [place] [address] Referral ID Status Reason Start Date Expiration Date Visits Requested Visits Authorized [id number] Authorized Perform Procedure 02/18/2023 08/17/2023 1 1 Specialty Diagnoses / Procedures Referred By Contac t Referred To Contact Radiology Diagnoses Spondylosis without myelopathy or radiculopathy, lumbosacral region Procedures FL less than 1 hour Pastor Lewis MD [facility] [place] [address] Referral ID Status Reason Start Date Expiration Date Visits Requested Visits Authorized [id number] Pending Review Perform Procedure 3 04/10/2024 1 1 Additional Source Comments INFORMATION SOURCE (unrecogn ized section and content) DATE CREATED AUTHOR AUTHOR'S ORGANIZ ATION 04/11/2021 [employer] DATE CREATED AUTHOR AUTHOR'S ORGANIZ ATION 01/02/2023 [facility] DATE CREATED AUTHOR AUTHOR'S ORGANIZ ATION 03/11/2023 [facility] DATE CREATED AUTHOR AUTHOR'S ORGANIZ ATION 08/01/2023 [facility] DATE CREATED AUTHOR AUTHOR'S ORGANIZ ATION 08/13/2023 [facility] Reason for Visit (unrecogniz ed section and content) Reason Comments Back Pain Specialty Diagnoses / Procedures Referred By Contac t Referred To Contact Radiology Diagnoses Spondylosis without myelopathy or radiculopathy, lumbosacral region Procedures FL less than 1 hour Pastor Lewis MD [facility] [place] [address] Referral ID Status Reason Start Date Expiration Date Visits Requested Visits Authorized [id number] Pending Review Perform Procedure 3 04/10/2024 1 1 Specialty Diagnoses / Procedures Referred By Contac t Referred To Contact Radiology Diagnoses Radiculopathy, lumbar region Procedures MR lumbar spine wo IV contrast Nasima Kline, EDUCATION TRAINER-ARCHITECTURAL DESIGNER [address] [place] [address] Referral ID Status Reason Start Date Expiration Date Visits Requested Visits Authorized [id number] Authorized Perform Procedure 02/18/2023 08/17/2023 1 1 Reason Comments Follow-up Post [facility] Reason Comments Neck Pain Reason Comments Neck Pain Goals (unrecognized section and content) Goals from 03/29/2022 11:53 AM:Goal for Mobility : Maintain active lifestyle as tolerated Goals from 02/01/2022 2:38 PM:Goal for Mobility : Maintain active lifestyle as tolerated FOR RECORDS PERTAINING TO PATIENTS WHO ARE OR HAVE BEEN ENROLLED IN A CHEMICAL DEPENDENCY/SUBSTANCEABUSE PROGRAM, SOME INFORMATION MAY BE OMITTED. This clinical summary was aggregated from multiple sources. Caution should be exercised in using it in the provision of clinical care. This summary normalizes information from multiple sources, and as a consequence, information in this document may materially change the coding, format and clinical context of patient data. In addition, data may be omitted in some cases. CLINICAL DECISIONS SHOULD BE BASED ON THE PRIMARY CLINICAL RECORDS. [facility] [employer] [facility]. provides no warranty or guarantee of the accuracy or completeness of information in this document.
--- NOTE | 2023-08-15 07:44 | RAD_ITS ---
STUDY: X-RAY - ESOPHAGUS (BARIUM SWALLOW) WITH FLUOROSCOPY REASON FOR EXAM: Female, 48 years old. Dysphagia TECHNIQUE: 13 view(s) of the esophagus were obtained following swallowing of barium. FLUOROSCOPY TIME (if supplied): (24 seconds) minutes/seconds. 10.09 mGy COMPARISON: None. FINDINGS: There is no demonstrated esophageal foreign body. There is no demonstrated stricture or mucosal abnormality. Normal gastroesophageal junction, without a demonstrated hiatal hernia. The patient ingested a 12 mm tablet of barium without any difficulty. Normal visualized aortic arch and descending thoracic aorta. Normal visualized pulmonary parenchyma. Normal visualized osseous structures of the thorax. RAD/Esophagus Dual Contrast IMPRESSION: Normal plain film x-ray examination (barium swallow) of the esophagus. Electronically Signed: Merrick Beckham MD at 8:44 EDT ,
== END | disposition home or self-care (01) ==
PROVIDERS: PCP Family Medicine; Referring Provider Family Medicine; Visit Provider Family Medicine
DX: R13.10 Dysphagia, unspecified (principal)
CPT/HCPCS: 74221

== ENCOUNTER → 2024-11-12 | Outpatient (CLI) | payer BC, SELFPAY ==
[2024-11-16 09:08] LABS: Anti-Thyroglobulin AB < 1.0 IU/mL (0.0-0.9); Thyroglobulin, Serum Qt. 15.9 ng/mL (1.5-38.5); Thyroid Peroxidase AB 150 IU/mL (0-34)
== END | disposition home or self-care (01) ==
LOC: MTLAB 15:16
PROVIDERS: PCP Family Medicine; Referring Provider Specialist; Visit Provider Specialist
DX: E04.9 Nontoxic goiter, unspecified (principal)
CPT/HCPCS: 36415; 84432; 86376; 86800

== ENCOUNTER → 2024-11-24 | Outpatient (CLI) | payer BC, SELFPAY | END | disposition home or self-care (01) | LOC: MTLAB 13:49 | PROVIDERS: PCP Family Medicine; Referring Provider Specialist; Visit Provider Specialist | DX: E06.3 Autoimmune thyroiditis (principal) | CPT/HCPCS: 36415; 84443 ==

== ENCOUNTER → 2025-04-15 | Outpatient (CLI) | payer BC, SELFPAY | END | disposition home or self-care (01) | LOC: MTLAB 14:35 | DX: E03.9 Hypothyroidism, unspecified (principal); E06.3 Autoimmune thyroiditis | CPT/HCPCS: 36415; 84443 ==